=== PATIENT | male | born 1955 | race Caucasian/White ===

== ENCOUNTER 2016-06-02 10:05 | Emergency (ER) | payer OTHER ==
--- NOTE | 2016-06-02 10:18 | CPEKG ---
Heart Rate: 72 RR Interval: 833 P-R Interval: 188 QRSD Interval: 94 QT Interval: 396 QTC Interval: 434 P [place]: 73 QRS [place]: 31 T Wave [place]: 6 EKG Severity - NORMAL ECG - EKG Impression: SINUS RHYTHM Electronically Signed By: Oral Reardon 02-Jun-2016 15:10:50
[2016-06-02 10:19] VITALS: RESP 16
[2016-06-02] MEDS ORDERED: ASPIRIN 81 MG CHEWABLE TAB PO ONE (10:21)
--- NOTE | 2016-06-02 10:29 | UCPHY ---
H & P Patient Type: Established Chief Complaint Nursing Narrative: C/o midsternal chest pain, heart burn x 1 month and nonproductive cough x 1 day. Denies SOB Time Seen by Provider: 06/02/16 10:12 HPI/ROS: Chief complaint: Chest pain HPI: Patient presenting with several days of a brief discomfort in his chest. Patient states that he is having episodes of what he is describing is a dull nerve pain beneath his sternum. That lasts less than a 2nd. He has also been having increasing reflux symptoms. He he is scheduled to have a endoscopy by GI next week. He is presenting this morning having had difficulty sleeping last night because he is getting this chest discomfort and every 5 minutes or so. Again it is brief lasting less than a 2nd. It is moderate in nature. He has had a slight nonproductive cough the last 2 days. No fevers or chills. No nausea or vomiting. Has been having increased symptoms of his reflux. He does have a past medical history of coronary artery disease and had 2 stents placed in 2008. He has not had an WI in the past. Patient states that does not feel like heart pain. He has also has a history of atrial fibrillation in the past for which he had an ablation. Does not feel his heart has been irregular. ROS: 10 point Review of Systems is negative except as noted in the HPI. Physical exam: Gen: Awake, Alert, No Distress HEENT: Nose: no rhinorrhea Eyes: PERRLA, EOMI Mouth: Moist mucosa Neck: Supple, no JVD Chest: nontender, lungs clear to auscultation Heart: S1, S2 normal, no murmur Abd: Soft, non-tender, no guarding Back: no CVA tenderness, no midline tenderness Ext: no edema, non-tender Skin: no rash Neuro: CN II-XII intact, Sensation grossly intact, Strength 5/5 in bilateral upper and lower extremities - Personal History Current Tetanus Diphtheria and Acellular Pertussis (TDAP): Yes Tetanus Vaccine Date: 2016 - Medical/Surgical History Hx Asthma: Yes Hx Chronic Respiratory Disease: No Hx Diabetes: No Hx Cardiac Disease: Yes Hx Renal Disease: No Hx Cirrhosis: No Hx Alcoholism: No Hx HIV/AIDS: No Hx Splenectomy or Spleen Trauma: No Other PMH: Coronary artery disease status post 2 stents. hemorrhoidectomy, Hernia 10/03, glaucoma, R rotator cuff repair, Bilat knee scopes, catheter ablation, stents, l5-s1 laminectomy, rotator cuff rebuild, glaucoma, peripheral neuropathy, AFIB, internal bleeding, acid reflux, HTN - Family History Significant Family History: No pertinent family hx - Social History Smoking Status: Never smoked Constitutional: Initial Vital Signs Temperature (C) 37.2 C 06/02/16 10:16 Heart Rate 74 06/02/16 10:16 Respiratory Rate 16 06/02/16 10:16 Blood Pressure 168/88 H 06/02/16 10:16 O2 Sat (%) 95 06/02/16 10:16 O2 Delivery Mode Room Air Allergies/Adverse Reactions: No Allergies [NKDA] Allergy (Verified 06/02/16 10:19) Home Medications: Medication Instructions Recorded Aspirin 06/02/16 Diltiazem 06/02/16 Fenofibric Acid 06/02/16 Fish Oil 06/02/16 Lipitor 06/02/16 Metoprolol Tartrate 06/02/16 Pantoprazole Sodium 06/02/16 Plavix 06/02/16 Medical Decision Making - Diagnostics EKG Interpretation: EC sinus rhythm with a rate of 72. Normal axis. Normal intervals. No ST or T-wave changes. Impression: Normal ECG ED Course/Re-evaluation: 60-year-old male presenting with atypical chest pain which lasts less than a 2nd. Symptoms do not sound cardiac in nature however he does have a history of cardiac disease. ECG is normal. Will check electrolytes, CBC and troponin. If these are negative I anticipate he will be discharged home with plan to follow up with his GI doctor for his endoscopy early next week. Patient's troponin is normal. He CBC and chemistry are normal. Symptoms are not consistent with acute coronary syndrome at this time. Normal ECG. Plan will be to discharge with follow-up for his endoscopy scheduled next week. - Data Points Laboratory Results: Laboratory Results 06/02/16 10:25 06/02/16 10:25 06/02/16 10:25 WBC 7.12 10^3/uL (3.80-9.50) RBC 5.13 10^6/uL (4.40-6.38) Hgb 15.4 g/dL (13.7-17.5) Hct 44.1 % (40.0-51.0) MCV 86.0 fL (81.5-99.8) MCH 30.0 pg (27.9-34.1) MCHC 34.9 g/dL (32.4-36.7) RDW 11.9 % (11.5-15.2) Plt Count 272 10^3/uL (150-400) MPV 9.8 fL (8.7-11.7) Neut % (Auto) 70.6 % (39.3-74.2) Lymph % (Auto) 21.1 % (15.0-45.0) Petroleum % (Auto) 6.3 % (4.5-13.0) Eos % (Auto) 0.7 % (0.6-7.6) Baso % (Auto) 1.0 % (0.3-1.7) Nucleat RBC Rel Count 0.0 % (0.0-0.2) Absolute Neuts (auto) 5.03 10^3/uL (1.70-6.50) Absolute Lymphs (auto) 1.50 10^3/uL (1.00-3.00) Absolute Monos (auto) 0.45 10^3/uL (0.30-0.80) Absolute Eos (auto) 0.05 10^3/uL (0.03-0.40) Absolute Basos (auto) 0.07 10^3/uL (0.02-0.10) Absolute Nucleated RBC 0.00 10^3/uL (0-0.01) Immature Gran % 0.3 % (0.0-1.1) Immature Gran # 0.02 10^3/uL (0.00-0.10) Sodium 142 mEq/L (134-144) Potassium 4.2 mEq/L (3.5-5.2) Chloride 104 mEq/L (97-110) Carbon Dioxide 26 mEq/l (22-31) Anion Gap 12 mEq/L (8-16) BUN 19 mg/dL (7-23) Creatinine 1.2 mg/dL (0.7-1.3) Estimated GFR > 60 Glucose 105 H mg/dL (70-100) Calcium 9.9 mg/dL (8.5-10.4) Troponin I < 0.012 ng/mL (0-0.034) Medications Given: Discontinued Medications Aspirin (Aspirin) 324 mg PO EDNOW ONE Stop: 06/02/16 10:22 Last Admin: 06/02/16 10:27 Dose: Not Given Departure - Departure Disposition: Home, Routine, Self-Care Clinical Impression: Atypical chest pain Condition: Good Instructions: Chest Pain (ED) Additional Instructions: Follow up with her forward air controller/air officer for your endoscopy as scheduled next week. Return to the emergency depart for increasing persisting chest pain, shortness of breath, fevers, chills, lightheadedness, fainting, or any other concerns. Referrals: Golden Vilchis MD [Primary Care Provider] - As per Instructions - PQRS PQRS Measurement: NA
[2016-06-02 10:34] LABS: % IMMATURE GRANULYOCYTES 0.3 % (0.0-1.1); ABSOLUTE IMMATURE GRANULOCYTES 0.02 10^3/uL (0.00-0.10); ADD DIFF? NO; ADD MORPH? NO; ADD SCAN? NO; ATYPICAL LYMPHOCYTE FLAG 0 (0-99); FRAGMENT RBC FLAG 0 (0-99); HEMATOCRIT 44.1 % (40.0-51.0); HEMOGLOBIN 15.4 g/dL (13.7-17.5); LEFT SHIFT FLG 0 (0-99); LIPEMIA HEMOLYSIS FLAG 90 (0-99); MEAN CELL HEMOGLOBIN CONCENTR. 34.9 g/dL (32.4-36.7); MEAN PLATELET VOLUME 9.8 fL (8.7-11.7); PLATELET CLUMPS FLAG 0 (0-99); PLATELET COUNT 272 10^3/uL (150-400); RED BLOOD CELL COUNT 5.13 10^6/uL (4.40-6.38); RED CELL DISTRIBUTION WIDTH 11.9 % (11.5-15.2)
[2016-06-02 10:46] LABS: ANION GAP 12 mEq/L (8-16); CALCIUM 9.9 mg/dL (8.5-10.4); CARBON DIOXIDE 26 mEq/l (22-31); CHLORIDE 104 mEq/L (97-110); CREATININE 1.2 mg/dL (0.7-1.3); GLOMERULAR FILTRATION RATE > 60; GLUCOSE 105 mg/dL (70-100); POTASSIUM 4.2 mEq/L (3.5-5.2); SODIUM 142 mEq/L (134-144)
[2016-06-02 11:01] LABS: TROPONIN I < 0.012 ng/mL (0-0.034)
[2016-06-02 11:15] VITALS: BP 124/87; PULSE 67; TEMP 98.6; O2SAT 93
== END 2016-06-02 11:21 | disposition home or self-care (01) ==
LOC: CED 10:05
DX: R07.89 Other chest pain (principal); I25.10 Atherosclerotic heart disease of native coronary artery without angina pectoris; Z95.5 Presence of coronary angioplasty implant and graft
CPT/HCPCS: 80048-PO; 84484-PO; 85025-PO; G0463-PO

== ENCOUNTER 2017-01-26 08:12 | Day surgery (SDC) | payer OTHER ==
[2017-01-26] MEDS ORDERED: LIDOCAINE 1% 300 MG/30 ML SDV SC ONE (08:21)
--- NOTE | 2017-01-26 09:01 | PDPROPOC ---
Sedation Plan of Care Sedation Plan of Care: vital signs stable, mental status noted, patient educated of risks, benefits, alternatives, patient can tolerate sedation ASA Classification: ASA 1 Planned drugs: other (local) Mallampati Score: Class 1 Mallampati Reference Image: Patient passed 3-3-2 rule?: Yes
--- NOTE | 2017-01-26 09:01 | PDHPUP ---
History & Physical Update H&P update statement: This history and physical update is based on an assessment of the patient which was completed after admission or registration (within 24 hours), but prior to the surgery/procedure.
--- NOTE | 2017-01-26 13:55 | CPIP ---
[f rep st] INVASIVE CARDIAC PROCEDURE DATE OF PROCEDURE: 01/26/2017 INDICATION: The patient is 61 years old. He has a history of paroxysmal atrial fibrillation with pr evious ablation. Recently, he has had recurrent palpitations. PROCEDURE: Implantation of Medtronic LINQ. TECHNIQUE: Following informed consent and in the fasting state, the patient was brought to the [facility]. The patient was prepped and draped in usual sterile fashion. The left 4th intercostal space was radha ntified. 1% lidocaine was infiltrated. A 1 cm incision was then made. The Medtronic LINQ was then injected underneath the skin. The skin was closed with 2 kashif. COMPLICATIONS: None. DISPOSITION: The patient will be recovered here in the [facility] and discharged home. /[id number]/MODL
== END 2017-01-26 09:42 | disposition home or self-care (01) ==
LOC: FCATH 08:12
PROVIDERS: ATTEND Internal Medicine Cardiovascular Disease
PROC: 0JH60PZ Insertion of Cardiac Rhythm Related Device into Chest Subcutaneous Tissue and Fascia, Open Approach (ICD-10-PCS; principal; 2017-01-26)
DX: I25.10 Atherosclerotic heart disease of native coronary artery without angina pectoris (principal); E78.5 Hyperlipidemia, unspecified; I10 Essential (primary) hypertension; I48.91 Unspecified atrial fibrillation
CPT/HCPCS: C1764

== ENCOUNTER 2017-04-10 23:11 | Emergency (ER) | payer OTHER ==
[2017-04-10 23:20] VITALS: BP 180/95; PULSE 68; RESP 18; TEMP 98.4; O2SAT 95
--- NOTE | 2017-04-10 23:28 | EDPHY ---
H & P Stated Complaint: c/o increasing neuropathy pain in bilat feet, more in L foot HPI/ROS: HPI CHIEF COMPLAINT: Worsening neuropathy HISTORY OF PRESENT ILLNESS: Patient very pleasant 61-year-old male, significant past medical history for peripheral neuropathy, additionally he has had multiple surgeries on both feet. He presents emergency room tonight with left foot pain. Patient reports to me that earlier today developed worsening left foot pain. He is unclear if it is from his back, peripheral neuropathy, or some other foot issue. He denies trauma. His main complaint is pain over his left great toe at the nail bed. He distally reports to me that his left foot appears a little bit more red than normal. He did take some leftover gout medication however he took 1 dose tonight this did not help. He has not had a fever. He tells me his pain is mainly in his left great toe. However it is around the nail bed. There is no signs of infection on exam. Past Medical History: Coronary artery disease with stents, hypertension, glaucoma, rotator cuff injury, peripheral neuropathy, glaucoma Past Surgical History: Cardiac stents, foot surgery bilaterally. Social History: Denies daily use of drugs alcohol tobacco. Family History: Noncontributory. ROS REVIEW OF SYSTEMS: A comprehensive 10 point review of systems is otherwise negative aside from elements mentioned in the history of present illness. Exam Constitutional appears well nontoxic, triage nursing summary reviewed, vital signs reviewed, awake/alert. Eyes normal conjunctivae and sclera, EOMI, PERRLA. HENT normal inspection, atraumatic, moist mucus membranes, no epistaxis, neck supple/ no meningismus, no raccoon eyes. Respiratory clear to auscultation bilaterally, normal breath sounds, no respiratory distress, no wheezing. Cardiovascular rate normal, regular rhythm, no murmur, no edema, distal pulses normal. Gastrointestinal soft, non-tender, no rebound, no guarding, normal bowel sounds, no distension, no pulsatile mass. Genitourinary no CVA tenderness. Musculoskeletal left foot: Tender palpation over the left great toe at the nail bed. No pus. There is no significant signs of redness. The toe does not appear swollen. Over the dorsum of the left foot is neurovascular intact good pulse. There is redness present very minimal. There is no crepitus. With range of motion of the left toe great toe he has pain at the nail bed. There is no significant pain or swelling over the left MTP joint. no midline vertebral tenderness, full range of motion, no calf swelling, no tenderness of extremities, no meningismus, good pulses, neurovascularly intact. Skin pink, warm, & dry, no rash, skin atraumatic. Neurologic awake, alert and oriented x 3, AAOx3, moves all 4 extremities equally, motor intact, sensory intact, CN II-XII intact, normal cerebellar, normal vision, normal speech. Psychiatric normal mood/affect. Heme/Lymph/Immune no lymphadenopathy. Differential Diagnosis: Includes but is not limited to in a particular order: Arthralgia, gouty arthritis, early infection, worsening neuropathy Medical Decision Making: Plan for this patient I will give him a dose of Keflex here in the emergency room and Keflex prescription in case this is an early infection. Additionally recommend he continues his gout medication. Additionally I recommend he follows up with his dairy frozen manager. Additionally could return emergency room if he has worsening symptoms questions concerns. There is no trauma involved I do not believe he needs an actual x- ray. He has not any fever. He does not have severe back pain. He additionally also has oxycodone at home. He declined any further pain medicine here. Source: Patient - Personal History Tetanus Vaccine Date: 2016 - Medical/Surgical History Hx Asthma: Yes Hx Chronic Respiratory Disease: No Hx Diabetes: No Hx Cardiac Disease: Yes Hx Renal Disease: No Hx Cirrhosis: No Hx Alcoholism: No Hx HIV/AIDS: No Hx Splenectomy or Spleen Trauma: No Other PMH: Coronary artery disease status post 2 stents. hemorrhoidectomy, Hernia 10/03, glaucoma, R rotator cuff repair, Bilat knee scopes, catheter ablation, stents, l5-s1 laminectomy, glaucoma, peripheral neuropathy, AFIB, internal bleeding, acid reflux, HTN, rest room matron implant, hyperlipidemia, asthma - Social History Smoking Status: Never smoked Constitutional: Initial Vital Signs Temperature (C) 36.9 C 04/10/17 23:14 Heart Rate 68 04/10/17 23:14 Respiratory Rate 18 04/10/17 23:14 Blood Pressure 180/95 H 04/10/17 23:14 O2 Sat (%) 95 04/10/17 23:14 O2 Delivery Mode Room Air Allergies/Adverse Reactions: No Allergies [NKDA] Allergy (Verified 04/10/17 23:21) Home Medications: Medication Instructions Recorded Aspirin 06/02/16 Diltiazem 06/02/16 Fish Oil 06/02/16 Lipitor 06/02/16 Metoprolol Tartrate 06/02/16 Pantoprazole Sodium 06/02/16 Plavix 06/02/16 Cephalexin [Keflex (*)] 500 mg PO Q6H #28 cap 04/10/17 Departure - Departure Disposition: Home, Routine, Self-Care Clinical Impression: Foot pain Qualifiers: Laterality: left Qualified Code(s): M79.672 - Pain in left foot Condition: Good Instructions: Arthralgia (ED) Additional Instructions: 1. Keep your foot elevated. 2. Ice your foot. 3. Take antibiotic as prescribed 4. Return emergency room if there is worsening symptoms questions or concerns. 5. Follow up with your dairy frozen manager. Referrals: Golden Vilchis MD [Primary Care Provider] - As per Instructions Prescriptions: Cephalexin [Keflex (*)] 500 mg PO Q6H #28 cap
== END 2017-04-11 00:07 | disposition home or self-care (01) ==
DX: M79.672 Pain in left foot (principal); I10 Essential (primary) hypertension; J45.909 Unspecified asthma, uncomplicated; Z79.82 Long term (current) use of aspirin

== ENCOUNTER 2017-08-26 08:52 | Inpatient (IN) | payer OTHER ==
--- NOTE | 2017-08-26 09:08 | EDPHY ---
General Time Seen by Provider: 08/26/17 08:58 Narrative: CHIEF COMPLAINT: Back pain HISTORY OF PRESENT ILLNESS: Patient complains of low back pain that is intractable. The pain has been present for several weeks and is previously describes a chronic pain prior to this. It is involving the lower lumbar musculature and radiates into the right leg down to the patella. It was [id number] at 1st. He went to a chiropractor last week which significantly exacerbated the pain. Is refractory to steroid Dosepak to was given outpatient. Associated with some weakness of the legs but no numbness or tingling. No incontinence of bowel or bladder. No saddle anesthesia. He is in too much pain to ambulate, thus he presents by EMS. He has been seen by neurosurgery in the past with previous L5-S1 laminectomy. He also was seen by urgent care this week and has an MRI plan for tomorrow. No other associated complaints or modifying factors. REVIEW OF SYSTEMS: Ten systems reviewed and are negative unless otherwise noted in the HPI PCP: Dr. Golden Vilchis SPECIALISTS: Neurosurgery, Dr. Jonathan Rocha Cardiology, Dr. Marshall GI, Dr. Monsivais Neurology, Dr. Costa Opthalmology, Dr. Ruiz PAST MEDICAL HISTORY: Multiple diagnoses with history significant for spinal stenosis lumbar radiculopathy PAST SURGICAL HISTORY: Laminectomy be L5-S1 2009 SOCIAL HISTORY: Nonsmoker. Lives here independently. FAMILY HISTORY: Noncontributory EXAMINATION General Appearance: Alert, no distress, laying in left lateral position Head: normocephalic, atraumatic Eyes: Pupils equal and round, no conjunctival pallor or injection ENT, Mouth: Mucous membranes moist Neck: Normal inspection, supple, non-tender Respiratory: Lungs are clear to auscultation Cardiovascular: Regular rate and rhythm. No murmur Gastrointestinal: Abdomen is soft and nontender Back: Tenderness of the lumbar spine with no crepitus or deformity. No fluctuance. No cellulitis. Neurological: A&O, nonfocal. antalgic but steady gait. Strength is symmetric in lower extremities 5/5. Patellar reflexes symmetric. Strength of the great toes is symmetric at 5/5 Skin: Warm and dry, no rash. No petechiae or purpura. No cellulitis or abscess Extremities: Nontender, no pedal edema Psychiatric: Mood and affect normal DIFFERENTIAL DIAGNOSES: Including but not limited to lumbar radiculopathy, discopathy, acute cord compression, nerve root compression, disc rupture, disc herniation MDM: 9:10 a.m. Intractable lumbar back pain with right-sided radiculopathy. No saddle anesthesia. No incontinence of bowel or bladder. His strength is symmetric distally. MRI was scheduled to be done tomorrow, but due to his pain he is here. Thus I ordered the MRI of the lumbar spine. I do not feel this is related to epidural hematoma as he has no bony tenderness of the spinous processes. But he does take Plavix, thus this must be taken a consideration. He is neuro intact at this time with severe pain but in no acute distress. Patient did have a cardiac device implanted in January 2017, thus we will need to further investigate compatibility. 9:50 a.m. Notified by RN that the patient's pain is intractable to the Valium administered so far. I have ordered morphine. MRI is pending. 11:40 a.m. Notified by radiologist Dr. Dao. We discussed the MRI findings as documented. 11:50 a.m. Case discussed with Dr. Cabrera. He agrees with our management the patient thus far. He informs me that he would be happy to evaluate the patient if the patient is admitted to the hospital or that he may be seen in the outpatient clinic if discharged home. I have re-evaluated the patient this time and he would like to try oral Percocet and attempt to go home. 12:50 p.m. Patient re-evaluated. He received Percocet 45 min ago. He has did to ambulate has significant pain and is unable to do so. He will require admission for pain control. He remains neuro intact distally. 1:05 p.m. Case discussed with hospitalist Kalani Hansen. Patient will be admitted to Dr. Patel. He is admitted in stable condition, neurovascular intact with no evidence of acute cord compression. SUPERVISION: Patient was independently examined, but I discussed the case with my secondary supervising physician Dr. Davalos - Diagnostics Imaging Results: Imaging Impressions Lumbar Spine MRI 08/26/17 09:56 Impression: 1. New right posterolateral disk herniation (extrusion) at the L3-L4 level. The extruded disk tracks inferiorly along the L4 vertebral body and is compressing the right L4 nerve root in the ventrolateral recess. 2. Severe bilateral neural foraminal stenosis at L3-L4, L4-L5, and L5-S1 due to diffuse broad-based disk bulges and marked facet hypertrophy has not significantly changed since 2014. 3. Increasing diskogenic edema at the L3-L4 level suggests instability at this level. 4. No compression fracture or bone lesion. Findings discussed with emergency department physician pharmacy affairs assistant, Shahram Nelson PA-C on August 26, 2017 at 11:54 a.m. - History Smoking Status: Never smoked - Objective Vital Signs: Initial Vital Signs Temperature (C) 98.2 F 08/26/17 08:53 Heart Rate 68 08/26/17 08:53 Respiratory Rate 14 08/26/17 08:53 Blood Pressure 169/113 H 08/26/17 08:53 O2 Sat (%) 95 08/26/17 08:53 O2 Delivery Mode Nasal Cannula O2 (L/minute) 2 Allergies/Adverse Reactions: No Allergies [NKDA] Allergy (Verified 04/10/17 23:21) Home Medications: Medication Instructions Recorded Albuterol [Proventil Inhaler HFA 1 - 2 puffs IH Q4HRS PRN 08/26/17 (*)] Albuterol [Proventil Neb] 3 ml IH QID PRN 08/26/17 Aspirin EC [Aspirin EC 81 mg (*)] 81 mg PO DAILY 08/26/17 Atorvastatin Calcium [Lipitor 40 80 mg PO HS 08/26/17 mg (*)] Cholecalciferol Vit D3 [Vitamin D3 2,000 units PO HS 08/26/17 2000 units tab (OTC)] Clopidogrel Bisulfate [Plavix (*)] 75 mg PO DAILY 08/26/17 Cyanocobalamin [Vitamin B12 (*)] 1,000 mcg PO HS 08/26/17 DULoxetine [Cymbalta 20 MG (RX)] 40 mg PO DAILY 08/26/17 Diltiazem HCl [Cartia Xt] 120 mg PO DAILY 08/26/17 Eszopiclone [Lunesta] 3 mg PO HS PRN 08/26/17 Hydrocodone/Acetaminophen [Burden 1 tab PO Q6HRS PRN 08/26/17 5/325 (*)] Indomethacin [Indocin 25 mg (*)] 25 mg PO Q6HRS PRN 08/26/17 LORazepam [Ativan (*)] 1 mg PO HS PRN 08/26/17 Latanoprost 0.005% [Xalatan 0.005% 1 drops LEFTEYE HS 08/26/17 (*)] Lisinopril [Zestril 10 mg (*)] 10 mg PO DAILY 08/26/17 Magnesium Oxide [Magnesium] 500 mg PO HS 08/26/17 Metoprolol Tartrate [Lopressor 25 25 mg PO BID 08/26/17 mg (*)] Warren-3 Fatty Acids [Fish Oil 1000 1,000 mg PO HS 08/26/17 mg (*)] Warren-3 Fatty Acids [Fish Oil 1000 2,000 mg PO BID@08/26/17 mg (*)] Pantoprazole Sodium [Protonix 40mg 40 mg PO DAILY 08/26/17 (*)] Ranitidine HCl [Zantac] 300 mg PO HS 08/26/17 Ubidecarenone [Co Q-10 200 mg] 200 mg PO HS 08/26/17 methylPREDNISolone [Medrol Dose 1 each PO AD 08/26/17 Yohannes] Laboratory Results: Laboratory Results 08/26/17 09:24 08/26/17 09:24 WBC 8.36 10^3/uL 10^3/uL (3.80-9.50) RBC 5.62 10^6/uL 10^6/uL (4.40-6.38) Hgb 16.9 g/dL g/dL (13.7-17.5) Hct 49.9 % % (40.0-51.0) MCV 88.8 fL fL (81.5-99.8) MCH 30.1 pg pg (27.9-34.1) MCHC 33.9 g/dL g/dL (32.4-36.7) RDW 12.8 % % (11.5-15.2) Plt Count 248 10^3/uL 10^3/uL (150-400) MPV 9.8 fL fL (8.7-11.7) Neut % (Auto) 61.4 % % (39.3-74.2) Lymph % (Auto) 26.7 % % (15.0-45.0) [place]iteside % (Auto) 9.3 % % (4.5-13.0) Eos % (Auto) 1.1 % % (0.6-7.6) Baso % (Auto) 0.7 % % (0.3-1.7) Nucleat RBC Rel Count 0.0 % % (0.0-0.2) Absolute Neuts (auto) 5.13 10^3/uL 10^3/uL (1.70-6.50) Absolute Lymphs (auto) 2.23 10^3/uL 10^3/uL (1.00-3.00) Absolute Monos (auto) 0.78 10^3/uL 10^3/uL (0.30-0.80) Absolute Eos (auto) 0.09 10^3/uL 10^3/uL (0.03-0.40) Absolute Basos (auto) 0.06 10^3/uL 10^3/uL (0.02-0.10) Absolute Nucleated RBC 0.00 10^3/uL 10^3/uL (0-0.01) Immature Gran % 0.8 % % (0.0-1.1) Immature Gran # 0.07 10^3/uL 10^3/uL (0.00-0.10) Medications Given: Discontinued Medications Dexamethasone (Decadron Injection) 10 mg IVP EDNOW ONE Stop: 08/26/17 11:49 Last Admin: 08/26/17 12:10 Dose: 10 mg Diazepam (Valium) 5 mg IVP EDNOW ONE Stop: 08/26/17 09:23 Last Admin: 08/26/17 09:26 Dose: 5 mg Morphine Sulfate (Morphine) 4 mg IVP EDNOW ONE Stop: 08/26/17 09:56 Last Admin: 08/26/17 10:07 Dose: 4 mg Morphine Sulfate (Morphine) 4 mg IVP EDNOW ONE Stop: 08/26/17 13:04 Last Admin: 08/26/17 13:10 Dose: 4 mg Ondansetron HCl (Zofran) 4 mg IVP EDNOW ONE Stop: 08/26/17 09:56 Last Admin: 08/26/17 10:07 Dose: 4 mg Oxycodone/Acetaminophen (Percocet 5/325) 2 tab PO EDNOW ONE Stop: 08/26/17 11:53 Last Admin: 08/26/17 12:11 Dose: 2 tab Departure - Departure Disposition: [facility] Inpatient Acute Clinical Impression: Intractable low back pain, Lumbar disc herniation Condition: Good
[2017-08-26] MEDS ORDERED: DIAZEPAM 5 MG/ML 1 ML SYR IVP ONE (09:22)
[2017-08-26] MEDS ORDERED: ONDANSETRON 4 MG/2 ML VIAL IVP ONE (09:55)
[2017-08-26 10:03] LABS: PLATELET COUNT 248 10^3/uL (150-400)
[2017-08-26] MEDS ORDERED: GADOBUTROL 10 ML VIAL IVP ONE (10:36)
[2017-08-26] MEDS ORDERED: DEXAMETHASONE 10 MG/ML VIAL IVP ONE (11:48)
[2017-08-26] MEDS ORDERED: OXYCODONE/APAP 5/325 TAB PO ONE (11:52)
[2017-08-26] MEDS ORDERED: LORazepam 1 MG TAB PO PRN (16:16)
[2017-08-26] MEDS ORDERED: ALBUTEROL 3 ML DEYVIAL IH PRN (16:16)
[2017-08-26] MEDS ORDERED: ALBUTEROL 60 PUFFS/8 GM MDI IH PRN (16:16)
[2017-08-26] MEDS ORDERED: HYDROmorphONE/DILAUDID 1 MG/ML INJ IVP PRN (16:20)
[2017-08-26] MEDS ORDERED: PROMETHAZINE HCL 25 MG/ML INJ IVP PRN (16:20)
[2017-08-26] MEDS ORDERED: ONDANSETRON 4 MG/2 ML VIAL IVP PRN (16:20)
[2017-08-26] MEDS ORDERED: *MD ORDERING ONLY-MEDROL DOSE PAK PO SCH (16:30)
--- NOTE | 2017-08-26 17:04 | GHP ---
[f rep st] HISTORY AND PHYSICAL DATE OF ADMISSION: 08/26/2017 CHIEF COMPLAINT: Back pain. HISTORY OF PRESENT ILLNESS: The patient is a 62-year-old male who had a laminectomy in 2009 at L3-L4 and L5-S1 with Dr. Harmon. After that surgery, his back pain went away, but his numbness never resolved. He has explored many options regarding his lower extremity numbness and was considering s urgery but, at that time, did not have any pain, and the risk/benefit ratio did not seem to be in fav or of pursuing surgery. He recently started seeing a chiropractor and, with chiropractic treatments, his numbness got better, but it has caused a new low back pain. Pain has gotten progressive over e last 1-1/2 weeks and, last night, got so excruciating that he came to the emergency room. The pain is worse with walking and standing and is much improved when he sits. It radiates down his right le g to his mid calf from the groin to the knee. He was seen recently in the urgent care at [facility] and prescribed a Medrol Dosepak. He denies any bladder or bowel control. He had an MRI scheduled for tomorrow but did not make it as he ended up in the emergency room. He is having some l ower extremity weakness, mostly in the proximal thigh, but he still is able to ambulate. PAST MEDICAL HISTORY: 1. Obstructive sleep apnea, CPAP intolerant. 2. Palpitations, status post LINQ monitor. 3. Asthma. 4. Atrial fibrillation, status post ablation. 5. BPH with elevated PSA. Being monitored. 6. Coronary artery disease, status post stents 2008. Last dose of Plavix yesterday morning. 7. Glaucoma of the left eye. 8. Neuropathy. PAST SURGICAL HISTORY: Lumbar fusion, bone spurs, rotator cuff. MEDICATIONS: Please see computerized record for full detailed list. ALLERGIES: No known drug allergies. SOCIAL HISTORY: No smoking, 1-2 alcoholic beverages per day. He lives alone. He owns [employer]. REVIEW OF SYSTEMS: Complete review of systems obtained. Review of systems negative for constitution al, HEENT, GI, pulmonary, vascular, , hematology, muscular, endocrine, psych, except for positive a nd negatives as in HPI. FAMILY HISTORY: Reviewed, noncontributory to presenting complaint. PHYSICAL EXAMINATION: GENERAL: Well-developed, well-nourished male, in no acute distress. VITAL SI GNS: Temperature is 36.8, pulse 55, blood pressure 148/88, satting 93% on room air. EYES: Normal c onjunctivae. Pupils equal, round, react to light. ENT: Normal ears and nose. Hearing intact. Nor mal teeth. Oropharynx moist. NECK: Trachea midline. No thyromegaly. CHEST: Normal effort. LUNG S: Clear to auscultation bilaterally. CARDIOVASCULAR: Regular rhythm. No murmur. No lower extremi ty edema. ABDOMEN: Soft, nontender. No hepatosplenomegaly. SKIN: Warm, dry, intact. No rash. M USCULOSKELETAL: No cyanosis or clubbing. Strength 4+/5 to right lower extremities. NEURO: Cranial nerves intact. Some decreased sensation to lower extremities. PSYCH: Alert and oriented x3. Norm al affect. Normal judgment and insight. Normal memory. LABORATORY DATA: White count 8.36, hematocrit 49.9, platelets 248. IMAGING: Lumbar MRI shows L3-L4 disk herniation with compression of the L4 nerve root and severe karla ateral foraminal stenosis at multiple levels. This case was discussed with neurosurgery PA for Dr. Gaurav mejia, and they will see him in consultation as an inpatient. MEDICAL RECORD REVIEW: I reviewed his medical records, including outpatient records in [facility] past medical history which I summarized above. ASSESSMENT/PLAN: 1. Disk herniation with nerve root compression. Pain control with IV narcotics are required at this time. Will prescribe IV Dilaudid. Neurosurgery to see him in consultation. Will hold his Plavix i n case he is going to need surgery in the near future. 2. Coronary artery disease status post stents 2008. Since he is so far out from his stents, okay to hold aspirin and Plavix. He is up to date with Cardiology and sees Dr. Love and Dr. Nicholson. He has been cleared by them for surgery as an outpatient, as he knew surgery was likely imminent for him. Will continue his beta jannette and statin. Will check an EKG in the morning. 3. Obstructive sleep apnea, CPAP intolerant. He may need oxygen at night. 4. Atrial fibrillation status post ablation. Continue diltiazem. 5. Palpitations with LINQ monitor in place. 6. Asthma, stable. Continue albuterol as needed. CODE STATUS: Full. ADMISSION STATUS: 1. Will admit to observation and re-evaluate tomorrow for ongoing need for hospitalization. 2. DVT prophylaxis. Will do SCDs only until surgical plan outlined by General Surgery. /[id number]/MODL
[2017-08-26] MEDS: methylPREDNISolone 4 MG TAB PO SCH ×2 (18:12→21:41)
[2017-08-26] MEDS ORDERED: NON-FORMULARY NEW DRUG (Ranitidine Hcl [Zantac] 300 MG) PO SCH ×2 (21:00)
[2017-08-26] MEDS ORDERED: NON-FORMULARY NEW DRUG (Magnesium Oxide [Magnesium] 500 MG) PO SCH (21:00)
[2017-08-26] MEDS: FAMOTIDINE 20 MG TAB PO SCH (21:21)
[2017-08-26] MEDS: CHOLECALCIFEROL VIT D3 2,000 UNITS TAB/CAP PO SCH (21:21)
[2017-08-26] MEDS: CYANO/VITAMIN B12 1000 MCG TAB PO SCH (21:21)
[2017-08-26] MEDS: ATORVASTATIN CALCIUM 40 MG TAB PO SCH (21:21)
[2017-08-26] MEDS: METOPROLOL TARTRATE 25 MG TAB PO SCH (21:21)
[2017-08-26] MEDS: LATANOPROST 0.005% 2.5 ML OPHT DROPS LEFTEYE SCH (21:40)
[2017-08-26] MEDS: HYDROCODONE/APAP 5/325 TAB PO PRN (21:48)
--- NOTE | 2017-08-26 22:16 | GCON ---
[f rep st] CONSULTATION NEUROSURGERY CONSULTATION DATE OF CONSULTATION: 08/26/2017 Patient was seen and evaluated at 8:45 p.m. on the general care floor at [facility]. HISTORY OF PRESENT ILLNESS: The patient is a 62-year-old man, who has had a long history of lumbar spine problems. He was originally taken care of by Dr. Harmon and had a right L3-4 hemilaminotomy and bilateral hemilaminotomies at L5-S1. His back pain apparently improved at that time and some of his leg pain. However, he has had bilateral [id number] lower extremity numbness, which has never resolved. He has seen multiple surgeons including Dr. Rocha and Dr. Monroy for this and most recently has been following with Dr. Lees at [facility]. He was recommended to have a L3-S1 fusion, but has not had this done as of yet. He has been having increasing right leg L4 radiculopathy over the past several weeks, and it has been becoming more and more painful and difficult for him to walk. He was prescribed a Medrol Dosepak, but this did not work very well for him. He says he has had multiple injections in the lower extremities, but these did not always work very well for him. He presented to the ER and had a recent MRI scan, and this reveals severe degenerative disk disease at L3-4 and L4-5. He has a small extruded fragment in the lateral recess at L3-4, which appears to be compressing the L4 nerve root in the lateral recess. He has bilateral severe foraminal stenosis at L3-4 , L4-5 and L5-S1, although this does not seem to be quite as severe at L5-S1. He denies any bowel or bladder control. He does have fairly significant back pain, but it is his leg that is currently bothering him now. REVIEW OF SYSTEMS: A 10-point review of systems is negative other than described above in the HPI. PAST MEDICAL HISTORY: 1. Obstructive sleep apnea. 2. Heart palpitations. 3. Asthma. 4. Atrial fibrillation. 5. Benign prostatic hypertrophy. 6. Coronary artery disease status post stents in 2008 on Plavix. 7. Glaucoma of the left eye. 8. Peripheral neuropathy. PAST SURGICAL HISTORY: 1. Lumbar laminectomy L3-4 and L5-S1. 2. Rotator cuff repair. ALLERGIES: No known drug allergies. MEDICATIONS: His medications were reviewed in the electronic medical record, and I have no additions at this time. Of note, the patient is on Plavix. SOCIAL HISTORY: Patient denies any tobacco use. He drinks 1-2 alcoholic beverages per day. 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 FAMILY HISTORY: Family history was reviewed, but is noncontributory to this admission. PHYSICAL EXAM: VITAL SIGNS: Currently, he is afebrile with normal stable vital signs. GENERAL: He is awake, alert, and oriented x3. NEUROLOGIC: Cranial nerves 2-12 are grossly normal. He has full 5/5 strength and normal sensation in all muscle groups in the upper limbs. In the lower extremities, he has 5/5 strength of the hip flexors, extensors, knee flexors, extensors, and plantar and dorsiflexion. He has a mildly positive straight leg raise on the right side and negative on the left. Deep tendon reflexes are intact. Sensation is mostly intact, but he does have some subjective weakness below the knees on both sides in a non dermatomal pattern. Imaging review, see HPI. ASSESSMENT AND PLAN: The patient is a pleasant 62-year-old male with a long history of lumbar spine problems. I think the issue most related to his current complaint with the L4 radiculopathy is acute disk herniation. I discussed with him the options for this including recommending an epidural steroid injection at L3-4 on the right side to see if this will relieve most of his pain. I think ultimately he probably would require a transforaminal lumbar interbody fusion at L3-4 and L4-5 and possibly L5-S1, especially if he hopes to improve his back pain and possibly the lower extremity numbness. It is pretty clear that he has had an EMG in the past by Dr. Costa and that the some of his numbness is due to peripheral neuropathy, but some of it also may be due to the lumbar spine. He is going to consider these options, and we will talk to the radiologist tomorrow with regard to how long they would like him to be off Plavix prior to considering a steroid injection. I think this would be the best way to proceed in the short term. However, over the group home, I do expect he ultimately will need surgery and will need a fusion. We will follow along while he is here in the hospital and try to help arrange the steroid injection. I will give him some Toradol in the meantime to see if this will help his pain a little bit better. The patient is happy with this plan. If we could get him feeling a bit better, he could even come back as an outpatient for the steroid injection. We will continue to work on this. Thanks for the kind consult. /[id number]/MODL MTDD
[2017-08-27] MEDS: HYDROCODONE/APAP 5/325 TAB PO PRN ×2 (06:21→21:58)
[2017-08-27] MEDS ORDERED: KETOROLAC 15 MG/1 ML SDV IVP ONE (08:00)
--- NOTE | 2017-08-27 08:04 | NEUSURGPN ---
Assessment/Plan: Assessment: 62 yr old male with L3-4 lateral recess disc herniation with L4 nerve compression Plan: -Will plan for right L3-4 TFESI tomorrow, patient took last dose of ASA and Plavix on Sunday. I spoke with IR, patient needs to be off for 3 days -Toradol 15mg IVP x1 -PT/OT-patient states he cannot ambulate far due to pain -Patient may need surgery if symptoms do not improve with injection. Possible L3 -5 TLIF (maybe L5-S1 as well) -Patient discussed with Dr Cabrera Please call neurosurgery with questions/concerns Subjective: Laying in bed, painful to ambulate Objective: AxOx3 PERRLA 5/5 BLE, BUE Sensation intact to light touch BLE, patient reports chronic numbness Neuro Check Frequency: per routine Urinary Catheter in Place: No - Physician Discussed Patient with : Deborah Neurosurgery Physical Exam - Vitals, I&O, Labs I and O 08/26/17 08/27/17 08/28/17 05:59 05:59 05:59 Intake Total 1820 Output Total 1650 Balance 170 Weight 102.058 kg Intake: Oral (ml) 820 IV Infused (ml) 1000 Output: Urine (ml) 1650 Toilet 900 Other: Intake Quantity Yes Sufficient Number of Voids Toilet 1 Vital Signs Temp Pulse Resp BP Pulse Ox 36.6 C 67 16 138/84 H 96 08/27/17 07:46 08/27/17 07:46 08/27/17 07:46 08/27/17 07:46 08/27/17 07:46 ICD10 Worksheet Patient Problems: Problems Problem Status Onset Intractable low back pain Acute Lumbar disc herniation Acute Lower GI bleed Acute
[2017-08-27] MEDS: methylPREDNISolone 4 MG TAB PO SCH ×5 (08:28→18:30)
[2017-08-27] MEDS: METOPROLOL TARTRATE 25 MG TAB PO SCH ×2 (08:28→20:01)
[2017-08-27] MEDS: LISINOPRIL 10 MG TAB PO SCH (08:28)
[2017-08-27] MEDS: MAGNESIUM OXIDE 400 MG TAB PO SCH (08:28)
[2017-08-27] MEDS: DILTIAZEM CD 120 MG CAP PO SCH (08:29)
[2017-08-27] MEDS: DULoxetine 20 MG CAP PO SCH (08:29)
[2017-08-27] MEDS: PANTOPRAZOLE SODIUM 40 MG TAB PO SCH (08:35)
--- NOTE | 2017-08-27 08:47 | CPEKG ---
Heart Rate: 57 RR Interval: 1053 QRSD Interval: 88 QT Interval: 440 QTC Interval: 429 QRS Ilion: 60 T Wave Ilion: 35 EKG Severity - ABNORMAL ECG - EKG Impression: sinus rhythm. Query atrial pacing?otherwise normal ecg. Electronically Signed By: Aj Nicholson 27-Aug-2017 12:41:16
[2017-08-27] MEDS: oxyCODONE IR 5 MG TAB PO PRN ×3 (10:10→18:39)
--- NOTE | 2017-08-27 14:11 | HOSPPROG ---
Hospitalist Progress Note Assessment/Plan: * Disk herniation with right L4 radiculopathy due to nerve root compression -CATALINA in am (okay when off Plavix x 3 days) -complete medrol dose pack * CAD/stent -holding ASA/Plavix for procedure -previously cleared for surgery by cardiology * ELIZABETH -O2 at night * Afib s/p ablation -continue diltiazem -LINQ monitor in place * Stable asthma * Peripheral neuropathy Subjective: Pain the same when he walks, minimal pain when sitting in bed Objective: Vital Signs Temp Pulse Resp BP Pulse Ox 36.6 C 67 16 138/84 H 96 08/27/17 07:46 08/27/17 07:46 08/27/17 07:46 08/27/17 07:46 08/27/17 07:46 08/26/17 08/27/17 08/28/17 05:59 05:59 05:59 Intake Total 1820 Output Total 1650 500 Balance 170 -500 - Physical Exam Constitutional: no apparent distress, appears nourished, not in pain Cardiovascular: regular rate and rhythym, no murmur, rub, or gallop Respiratory: no respiratory distress, no rales or rhonchi, clear to auscultation Gastrointestinal: normoactive bowel sounds, soft, non-tender abdomen, no palpable masses Skin: no rashes or abrasions, no fluctuance, no induration Neurologic: AAOx3, sensation intact bilaterally Psychiatric: interacting appropriately, not anxious, not encephalopathic, thought process linear ICD10 Worksheet Patient Problems: Problems Problem Status Onset Intractable low back pain Acute Lumbar disc herniation Acute Lower GI bleed Acute
--- NOTE | 2017-08-27 15:57 | ASMTCMCOM ---
CM Note CM Note Notes: Pt in for intractable back pain and disk herniation.i Pt scheduled to have steroid injection tomorrow. PT/OT evals pending. Pt resides in [facility]. CM to follow for d/c needs. Date Signed: 08/27/2017 03:57 PM Electronically Signed By:REY Coyne
[2017-08-27] MEDS: ATORVASTATIN CALCIUM 40 MG TAB PO SCH (20:00)
[2017-08-27] MEDS: FAMOTIDINE 20 MG TAB PO SCH (20:01)
[2017-08-27] MEDS: CYANO/VITAMIN B12 1000 MCG TAB PO SCH (20:01)
[2017-08-27] MEDS: CHOLECALCIFEROL VIT D3 2,000 UNITS TAB/CAP PO SCH (20:01)
[2017-08-27] MEDS: LATANOPROST 0.005% 2.5 ML OPHT DROPS LEFTEYE SCH (20:02)
[2017-08-27] MEDS ORDERED: methylPREDNISolone 4 MG TAB PO SCH (21:00)
[2017-08-28] MEDS: oxyCODONE IR 5 MG TAB PO PRN ×2 (01:42→14:09)
[2017-08-28] MEDS ORDERED: ZOLPIDEM TARTRATE 5 MG TAB PO ONE (02:50)
[2017-08-28] MEDS: methylPREDNISolone 4 MG TAB PO SCH ×4 (06:38→20:20)
[2017-08-28] MEDS: HYDROCODONE/APAP 5/325 TAB PO PRN ×3 (07:11→22:26)
[2017-08-28] MEDS: HYDROmorphone HCL/NS 0.5 MG/ML SYR IVP PRN ×2 (08:15→11:00)
--- NOTE | 2017-08-28 08:27 | NEUSURGPN ---
Assessment/Plan: Assessment: 62 yr old male with L3-4 lateral recess disc herniation with L4 nerve compression Plan: -Will plan for right L3-4 TFESI today, patient is npo -Toradol 15mg IVP x1 yesterday did not reduce his pain -PT/OT-patient states he cannot ambulate far due to pain -Patient may need surgery if symptoms do not improve with injection. Possible L3 -5 TLIF (maybe L5-S1 as well). Keep off Plavix and ASA until plan is decided on -Patient discussed with Dr Cabrera Please call neurosurgery with questions/concerns Subjective: No new events, awaiting injection today Objective: AxOx3 PERRLA 5/5 BLE, BUE Sensation intact to light touch BLE, patient reports chronic numbness Neuro Check Frequency: per routine Urinary Catheter in Place: No - Physician Discussed Patient with : Deborah Neurosurgery Physical Exam - Vitals, I&O, Labs I and O 08/27/17 08/28/17 08/29/17 05:59 05:59 05:59 Intake Total 1820 990 Output Total 1650 1550 Balance 170 -560 Weight 102.058 kg Intake: Oral (ml) 820 300 IV Intake (ml) 690 IV Infused (ml) 1000 Output: Urine (ml) 1650 1550 Toilet 900 1550 Other: Intake Quantity Yes Sufficient Number of Voids Toilet 1 1 Number of Stools Toilet 1 Vital Signs Temp Pulse Resp BP Pulse Ox 36.8 C 59 L 16 119/75 95 08/27/17 23:31 08/27/17 23:31 08/27/17 23:31 08/27/17 23:31 08/27/17 23:31 ICD10 Worksheet Patient Problems: Problems Problem Status Onset Intractable low back pain Acute Lumbar disc herniation Acute Lower GI bleed Acute
[2017-08-28] MEDS: DILTIAZEM CD 120 MG CAP PO SCH (11:05)
[2017-08-28] MEDS: METOPROLOL TARTRATE 25 MG TAB PO SCH ×2 (11:05→20:20)
[2017-08-28] MEDS: MAGNESIUM OXIDE 400 MG TAB PO SCH (11:06)
[2017-08-28] MEDS: DULoxetine 20 MG CAP PO SCH (11:06)
[2017-08-28] MEDS: LISINOPRIL 10 MG TAB PO SCH (11:07)
[2017-08-28] MEDS: PANTOPRAZOLE SODIUM 40 MG TAB PO SCH (11:07)
--- NOTE | 2017-08-28 12:54 | HOSPPROG ---
Hospitalist Progress Note Assessment/Plan: Edin is a 62 y/o male who had a laminectomy in 2009. His back pain went away but cont to have numbness.He saw a chiropractor who helped with the numbness but then the pain returned. He had an MRI performed which showed L3- L4 disk herniation w compression of the L4 nerve root and severe foraminal stenosis at multiple levels. Today is my first encounter w the patient; reviewed his care with Dr Tristan yesterday while she was caring for him. Reviewed neurosurgery notes. * Disk herniation with right L4 radiculopathy due to nerve root compression -CATALINA today (okay when off Plavix x 3 days) -complete medrol dose pack -will order fluids while NPO -has ongoing numbness and pain * CAD/stent -holding ASA/Plavix for procedure -previously cleared for surgery by cardiology -stents were placed multiple years ago * ELIZABETH -O2 at night * Afib s/p ablation -continue diltiazem -LINQ monitor in place * Stable asthma -no s/sx of any exacerbation * Peripheral neuropathy (chronic) *plan: to get steroid injection today Subjective: Winston said pain is ongoing, hoping that the steroid injection helps. Objective: Vital Signs Temp Pulse Resp BP Pulse Ox 36.8 C 55 L 12 141/81 H 95 08/28/17 11:03 08/28/17 11:05 08/28/17 11:03 08/28/17 11:07 08/28/17 11:03 08/27/17 08/28/17 08/29/17 05:59 05:59 05:59 Intake Total 1820 990 Output Total 1650 1550 400 Balance 170 -560 -400 - Physical Exam Constitutional: no apparent distress, appears nourished Eyes: PERRL Ears, Nose, Mouth, Throat: hearing normal Cardiovascular: regular rate and rhythym Respiratory: no respiratory distress Skin: warm Neurologic: AAOx3 Psychiatric: interacting appropriately ICD10 Worksheet Patient Problems: Problems Problem Status Onset Intractable low back pain Acute Lumbar disc herniation Acute Lower GI bleed Acute
[2017-08-28] MEDS ORDERED: FLUMAZENIL 0.5 MG/5 ML MDV IVP PRN (13:12)
[2017-08-28] MEDS ORDERED: MEPERIDINE 25 MG/ML SYR IVP PRN (13:12)
[2017-08-28] MEDS ORDERED: MIDAZOLAM 2 MG/2 ML VIAL IVP PRN (13:12)
[2017-08-28] MEDS ORDERED: GLUCAGON HCL 1 MG VIAL IVP PRN (13:12)
[2017-08-28] MEDS ORDERED: NALOXONE HCL 0.4 MG/ML INJ IVP PRN (13:12)
[2017-08-28] MEDS ORDERED: fentaNYL 100 MCG/2 ML INJ IVP PRN (13:12)
[2017-08-28] MEDS ORDERED: NS 1,000 ML IV SCH (13:15)
[2017-08-28] MEDS ORDERED: fentaNYL 100 MCG/2 ML INJ ONE (15:25)
[2017-08-28] MEDS ORDERED: MIDAZOLAM 2 MG/2 ML VIAL ONE (15:25)
[2017-08-28] MEDS ORDERED: TRIAMCINOLONE ACETONIDE 200 MG/5 ML MDV IM ONE (15:27)
--- NOTE | 2017-08-28 16:32 | PDRADPN ---
Radiology Procedure Note Date of Procedure: 08/28/17 Radiologist: Olivia Turner Anesthesia: IV Sedation Pre-op Diagnosis: DDD Post-op Diagnosis: same Indication: back and leg pain Procedure: bilateral L4-5 TFESI and SNRB Finding(s): SEE REPORT Inf/Abcess present in the surg proc area at time of surgery?: No Complications: NONE
[2017-08-28] MEDS: CYANO/VITAMIN B12 1000 MCG TAB PO SCH (20:19)
[2017-08-28] MEDS: LATANOPROST 0.005% 2.5 ML OPHT DROPS LEFTEYE SCH (20:19)
[2017-08-28] MEDS: FAMOTIDINE 20 MG TAB PO SCH (20:20)
[2017-08-28] MEDS: CHOLECALCIFEROL VIT D3 2,000 UNITS TAB/CAP PO SCH (20:20)
[2017-08-28] MEDS: ATORVASTATIN CALCIUM 40 MG TAB PO SCH (20:35)
[2017-08-29] MEDS: HYDROCODONE/APAP 5/325 TAB PO PRN (05:31)
[2017-08-29] MEDS: MAGNESIUM OXIDE 400 MG TAB PO SCH (08:11)
[2017-08-29] MEDS: DULoxetine 20 MG CAP PO SCH (08:11)
[2017-08-29] MEDS: methylPREDNISolone 4 MG TAB PO SCH ×3 (08:11→22:05)
[2017-08-29] MEDS: oxyCODONE IR 5 MG TAB PO PRN (08:12)
[2017-08-29] MEDS: LISINOPRIL 10 MG TAB PO SCH (08:13)
[2017-08-29] MEDS: PANTOPRAZOLE SODIUM 40 MG TAB PO SCH (08:13)
[2017-08-29] MEDS: METOPROLOL TARTRATE 25 MG TAB PO SCH ×2 (08:14→22:03)
[2017-08-29] MEDS: DILTIAZEM CD 120 MG CAP PO SCH (08:14)
[2017-08-29] MEDS: METHOCARBAMOL 750 MG TAB PO PRN ×2 (08:24→13:09)
[2017-08-29] MEDS ORDERED: LACTULOSE 20 GM/30 ML UDCUP PO PRN (08:41)
[2017-08-29] MEDS ORDERED: MAGNESIUM HYDROXIDE 30 ML UDCUP PO PRN (08:41)
[2017-08-29] MEDS ORDERED: BISACODYL 10 MG SUPP PR PRN (08:41)
--- NOTE | 2017-08-29 08:46 | NEUSURGPN ---
Assessment/Plan: Assessment: 62 yr old male with L3-4 lateral recess disc herniation with L4 nerve compression Plan: -Bilateral L3-4 TFESI and SRB performed yesterday, patient has not noticed improvement in his symptoms yet today, pain increases when out of bed -Dr Cabrera will see and talk with patient today about surgerical options. We would like him to be off his Plavix x7days prior to surgery (09/01). Surgery likely would be Sunday 09/03. Surgery would be L3-4, L4-5 TLIF (possible L5-S1 TLIF as well). -Continue to hold Plavix and ASA -PT/OT -Patient discussed with Dr Cabrera Please call neurosurgery with questions/concerns Subjective: Leg pain still present, some relief with laying in bed Objective: AxOx3 PERRLA 08/25 BLE, BUE Sensation intact to light touch BLE, patient reports chronic numbness Neuro Check Frequency: per routine Urinary Catheter in Place: No - Physician Discussed Patient with Dr.: Cabrera Patient Seen by Dr.: Cabrera Neurosurgery Physical Exam - Vitals, I&O, Labs I and O 08/28/17 08/29/17 08/30/17 05:59 05:59 05:59 Intake Total 990 120 Output Total 1550 825 Balance -560 -705 Intake: Oral (ml) 300 120 IV Intake (ml) 690 Output: Urine (ml) 1550 825 Toilet 1550 Urinal 825 Other: Intake Quantity Yes Sufficient Number of Voids Toilet 1 1 Urinal 1 Number of Stools Toilet 1 Vital Signs Temp Pulse Resp BP Pulse Ox 36.8 C 59 L 18 168/92 H 96 08/29/17 07:54 08/29/17 07:54 08/29/17 07:54 08/29/17 07:54 08/29/17 07:54 ICD10 Worksheet Patient Problems: Problems Problem Status Onset Intractable low back pain Acute Lumbar disc herniation Acute Lower GI bleed Acute
[2017-08-29] MEDS: POLYETHYLENE GLYCOL 3350 17 GM PKT PO PRN (08:48)
[2017-08-29] MEDS: SENNOSIDES/DOCUSATE SODIUM TAB PO SCH ×2 (08:48→22:05)
[2017-08-29] MEDS: ACETAMINOPHEN 325 MG TAB PO PRN (13:12)
--- NOTE | 2017-08-29 13:39 | HOSPPROG ---
Hospitalist Progress Note Assessment/Plan: Edin is a 62 y/o male who had a laminectomy in 2009. His back pain went away but cont to have numbness.He saw a chiropractor who helped with the numbness but then the pain returned. He had an MRI performed which showed L3- L4 disk herniation w compression of the L4 nerve root and severe foraminal stenosis at multiple levels. * Disk herniation with right L4 radiculopathy due to nerve root compression -s/p bilateral CATALINA yesterday without significant improvement of symptoms -to have surgery Sunday most likely; will need to stay off Plavix and aspirin * CAD/stent -holding ASA/Plavix for procedure -previously cleared for surgery by cardiology -stents were placed multiple years ago * ELIZABETH -O2 at night * Afib s/p ablation -continue diltiazem -LINQ monitor in place * Stable asthma -no s/sx of any exacerbation * Peripheral neuropathy (chronic) *dvt prophylaxis: LMWH initiated. This will need to be stopped after Sunday's dose for surgery on Sunday. -patient has not been very mobile *plan: continue supportive care till surgery, patient has some swelling in right calf area; will get an ultrasound to further evaluate. Subjective: Winston has some c/o numbness down his right leg, also notices his right ramos is slightly swollen. Objective: Vital Signs Temp Pulse Resp BP Pulse Ox 36.8 C 59 L 18 168/92 H 96 08/29/17 07:54 08/29/17 07:54 08/29/17 07:54 08/29/17 07:54 08/29/17 07:54 08/28/17 08/29/17 08/30/17 05:59 05:59 05:59 Intake Total 990 120 Output Total 1550 825 Balance -560 -705 - Physical Exam Constitutional: no apparent distress, appears nourished Eyes: PERRL Ears, Nose, Mouth, Throat: hearing normal Cardiovascular: regular rate and rhythym Respiratory: no respiratory distress Musculoskeletal: generalized weakness Neurologic: AAOx3 Psychiatric: interacting appropriately ICD10 Worksheet Patient Problems: Problems Problem Status Onset Intractable low back pain Acute Lumbar disc herniation Acute Lower GI bleed Acute
[2017-08-29] MEDS: ATORVASTATIN CALCIUM 40 MG TAB PO SCH (22:03)
[2017-08-29] MEDS: CYANO/VITAMIN B12 1000 MCG TAB PO SCH (22:05)
[2017-08-29] MEDS: CHOLECALCIFEROL VIT D3 2,000 UNITS TAB/CAP PO SCH (22:05)
[2017-08-29] MEDS: FAMOTIDINE 20 MG TAB PO SCH (22:07)
[2017-08-29] MEDS: LATANOPROST 0.005% 2.5 ML OPHT DROPS LEFTEYE SCH (22:07)
[2017-08-30] MEDS: methylPREDNISolone 4 MG TAB PO SCH ×2 (07:49→22:19)
[2017-08-30] MEDS: DILTIAZEM CD 120 MG CAP PO SCH (08:10)
[2017-08-30] MEDS: DULoxetine 20 MG CAP PO SCH (08:11)
[2017-08-30] MEDS: LISINOPRIL 10 MG TAB PO SCH (08:11)
[2017-08-30] MEDS: METOPROLOL TARTRATE 25 MG TAB PO SCH ×2 (08:12→22:17)
[2017-08-30] MEDS: SENNOSIDES/DOCUSATE SODIUM TAB PO SCH ×2 (08:13→22:19)
[2017-08-30] MEDS: MAGNESIUM OXIDE 400 MG TAB PO SCH (08:13)
[2017-08-30] MEDS: PANTOPRAZOLE SODIUM 40 MG TAB PO SCH (08:14)
[2017-08-30] MEDS: ENOXAPARIN 40 MG/0.4 ML SYR SC SCH (08:14)
[2017-08-30] MEDS: HYDROCODONE/APAP 5/325 TAB PO PRN (08:20)
--- NOTE | 2017-08-30 08:34 | NEUSURGPN ---
Assessment/Plan: Assessment: 62 yr old male with L3-4 lateral recess disc herniation with L4 nerve compression Plan: -Bilateral L3-4 TFESI and SRB performed yesterday, patient has not noticed improvement in his symptoms, pain increases when out of bed -Dr Cabrera has spoken with patient today about surgical options. We would like him to be off his Plavix x7days prior to surgery (09/01). Surgery likely would be Sunday 09/03. Surgery would be L3-S1 TLIF with laminectomy/foraminotomies -NPO after midnight on Sunday -Discussed risks of surgery with pt today and all questions answered. Consents left at bedside to be signed -Continue to hold Plavix and ASA -PT/OT -Patient discussed with Dr Cabrera Please call neurosurgery with questions/concerns Subjective: Pt resting in bed, understands plan for surgery on sunday and wishes to proceed Objective: AAOx3 NAD VSS MAEx4 Motor 08/25 BLE +LT Urinary Catheter in Place: No - Physician Discussed Patient with Dr.: Cabrera Neurosurgery Physical Exam - Vitals, I&O, Labs I and O 08/29/17 08/30/17 08/31/17 05:59 05:59 05:59 Intake Total 120 1000 Output Total 825 500 Balance -705 1000 -500 Intake: Oral (ml) 120 1000 Output: Urine (ml) 825 500 Urinal 825 500 Other: Intake Quantity Yes Yes Sufficient Number of Voids Toilet 1 Urinal 1 65 1 Vital Signs Temp Pulse Resp BP Pulse Ox 36.8 C 65 14 169/93 H 94 08/30/17 07:43 08/30/17 08:12 08/30/17 07:43 08/30/17 08:12 08/30/17 07:43 ICD10 Worksheet Patient Problems: Problems Problem Status Onset Intractable low back pain Acute Lumbar disc herniation Acute Lower GI bleed Acute
--- NOTE | 2017-08-30 13:59 | ASMTCMCOM ---
CM Note CM Note Notes: Surgical options discussed with pt since the steroid injection has not provided relief. Pt to be off Plavix before surgery so now surgery is scheduled Sunday09/03/17. Pt likely will stay in hospital until surgery. OT will hold eval until after surgery. PT rec home/outpatient. CM to follow pt progress after surgery. Date Signed: 08/30/2017 01:59 PM Electronically Signed By:REY Coyne
--- NOTE | 2017-08-30 15:22 | HOSPPROG ---
Hospitalist Progress Note Assessment/Plan: Edin is a 62 y/o male who had a laminectomy in 2009. His back pain went away but cont to have numbness. He saw a chiropractor who helped with the numbness but then the pain returned. He had an MRI performed which showed L3- L4 disk herniation w compression of the L4 nerve root and severe foraminal stenosis at multiple levels. First encounter, chart reviewed. * Disk herniation with right L4 radiculopathy due to nerve root compression -s/p bilateral CATALINA yesterday without significant improvement of symptoms -to have surgery Sunday most likely; will need to stay off Plavix and aspirin * CAD/stent -holding ASA/Plavix for procedure -previously cleared for surgery by cardiology -stents were placed multiple years ago * ELIZABETH -O2 at night * Afib s/p ablation -continue diltiazem -LINQ monitor in place * Stable asthma -no s/sx of any exacerbation * Peripheral neuropathy (chronic) *Leg swelling -no clot per US *dvt prophylaxis: LMWH initiated. This will need to be stopped after Sunday's dose for surgery on Sunday. -patient has not been very mobile *plan: continue supportive care till surgery Subjective: Feels ok. Still having significant pain. Eating well. No other issues. Objective: Vital Signs Temp Pulse Resp BP Pulse Ox 36.8 C 65 14 169/93 H 94 08/30/17 07:43 08/30/17 08:12 08/30/17 07:43 08/30/17 08:12 08/30/17 07:43 08/29/17 08/30/17 08/31/17 05:59 05:59 05:59 Intake Total 120 1000 Output Total 825 500 Balance -705 1000 -500 - Physical Exam Constitutional: no apparent distress, appears nourished, uncomfortable Eyes: PERRL, anicteric sclera, EOMI Ears, Nose, Mouth, Throat: moist mucous membranes, hearing normal, ears appear normal Cardiovascular: No JVD, No tachycardia, No edema Respiratory: no respiratory distress, no rales or rhonchi, clear to auscultation Gastrointestinal: normoactive bowel sounds, No tenderness, No ascites Skin: warm, normal color, No mottled Musculoskeletal: pain with ROM, muscular tenderness, generalized weakness Neurologic: AAOx3 Psychiatric: interacting appropriately, not anxious, not encephalopathic, thought process linear ICD10 Worksheet Patient Problems: Problems Problem Status Onset Lower GI bleed Acute Intractable low back pain Acute Lumbar disc herniation Acute
[2017-08-30] MEDS: ATORVASTATIN CALCIUM 40 MG TAB PO SCH (22:18)
[2017-08-30] MEDS: CYANO/VITAMIN B12 1000 MCG TAB PO SCH (22:18)
[2017-08-30] MEDS: CHOLECALCIFEROL VIT D3 2,000 UNITS TAB/CAP PO SCH (22:18)
[2017-08-30] MEDS: FAMOTIDINE 20 MG TAB PO SCH (22:19)
[2017-08-30] MEDS: LATANOPROST 0.005% 2.5 ML OPHT DROPS LEFTEYE SCH (22:26)
[2017-08-31] MEDS ORDERED: methylPREDNISolone 4 MG TAB PO SCH (07:30)
--- NOTE | 2017-08-31 08:25 | NEUSURGPN ---
Assessment/Plan: Assessment: 62 yr old male with L3-4 lateral recess disc herniation with L4 nerve compression Plan: -Bilateral L3-4 TFESI and SRB without improvement in his symptoms, pain increases when out of bed -Dr Cabrera has spoken with patient today about surgical options. We would like him to be off his Plavix x7days prior to surgery (09/01). Surgery on Sunday 09/03 = L3-S1 TLIF with laminectomy/foraminotomies -NPO after midnight on Sunday -Discussed risks of surgery with pt. Consents signed and in chart -Continue to hold Plavix and ASA -PT/OT -Patient discussed with Dr Cabrera -NS will see patient again on Sunday to make sure he is ready for surgery the following day Please call neurosurgery with questions/concerns Subjective: Pt resting in bed, wants to know if he can try a muscle relaxant Objective: AAOx3 NAD VSS MAEx4 Motor 08/25 BLE +LT Urinary Catheter in Place: No - Physician Discussed Patient with : Deborah Neurosurgery Physical Exam - Vitals, I&O, Labs I and O 08/30/17 08/31/17 09/01/17 05:59 05:59 05:59 Intake Total 1000 100 Output Total 500 1 Balance 1000 -500 99 Intake: Oral (ml) 1000 100 Output: Urine (ml) 500 1 Toilet 1 Urinal 500 Other: Intake Quantity Yes Sufficient Number of Voids Toilet 2 Urinal 65 2 Number of Stools Toilet 1 Vital Signs Temp Pulse Resp BP Pulse Ox 36.8 C 66 20 159/95 H 96 08/31/17 07:26 08/31/17 07:26 08/31/17 07:26 08/31/17 07:26 08/31/17 07:26 ICD10 Worksheet Patient Problems: Problems Problem Status Onset Intractable low back pain Acute Lumbar disc herniation Acute Lower GI bleed Acute
[2017-08-31] MEDS: SENNOSIDES/DOCUSATE SODIUM TAB PO SCH ×2 (08:34→22:49)
[2017-08-31] MEDS: DULoxetine 20 MG CAP PO SCH (08:35)
[2017-08-31] MEDS: ACETAMINOPHEN 325 MG TAB PO PRN (08:35)
[2017-08-31] MEDS: LISINOPRIL 10 MG TAB PO SCH (08:36)
[2017-08-31] MEDS: MAGNESIUM OXIDE 400 MG TAB PO SCH (08:36)
[2017-08-31] MEDS: PANTOPRAZOLE SODIUM 40 MG TAB PO SCH (08:36)
[2017-08-31] MEDS: DILTIAZEM CD 120 MG CAP PO SCH (08:37)
[2017-08-31] MEDS: METOPROLOL TARTRATE 25 MG TAB PO SCH ×2 (08:37→21:37)
[2017-08-31] MEDS: ENOXAPARIN 40 MG/0.4 ML SYR SC SCH (08:38)
[2017-08-31] MEDS: METHOCARBAMOL 750 MG TAB PO PRN (11:00)
--- NOTE | 2017-08-31 11:23 | HOSPPROG ---
Hospitalist Progress Note Assessment/Plan: Edin is a 62 y/o male who had a laminectomy in 2009. His back pain went away but cont to have numbness. He saw a chiropractor who helped with the numbness but then the pain returned. He had an MRI performed which showed L3- L4 disk herniation w compression of the L4 nerve root and severe foraminal stenosis at multiple levels. * Disk herniation with right L4 radiculopathy due to nerve root compression -s/p bilateral CATALINA without significant improvement of symptoms -to have surgery Sunday most likely; will need to stay off Plavix and aspirin * CAD/stent -holding ASA/Plavix for procedure -previously cleared for surgery by cardiology -stents were placed multiple years ago * ELIZABETH -O2 at night * Afib s/p ablation -continue diltiazem -LINQ monitor in place * Stable asthma -no s/sx of any exacerbation * Peripheral neuropathy (chronic) *Leg swelling -no clot per US *dvt prophylaxis: LMWH initiated. This will need to be stopped after Sunday's dose for surgery on Sunday. -patient has not been very mobile *plan: continue supportive care till surgery Subjective: Still having pain. no other issues. Objective: Vital Signs Temp Pulse Resp BP Pulse Ox 36.8 C 74 20 159/95 H 96 08/31/17 07:26 08/31/17 08:37 08/31/17 07:26 08/31/17 08:37 08/31/17 07:26 08/30/17 08/31/17 09/01/17 05:59 05:59 05:59 Intake Total 1000 100 Output Total 500 1 Balance 1000 -500 99 - Physical Exam Constitutional: no apparent distress, appears nourished, uncomfortable Eyes: PERRL, anicteric sclera Ears, Nose, Mouth, Throat: moist mucous membranes, hearing normal Cardiovascular: No JVD, No edema Respiratory: no respiratory distress, no rales or rhonchi Gastrointestinal: No tenderness, No ascites Skin: warm, normal color Musculoskeletal: pain with ROM, muscular tenderness, generalized weakness Neurologic: AAOx3 Psychiatric: interacting appropriately, not anxious, not encephalopathic, thought process linear ICD10 Worksheet Patient Problems: Problems Problem Status Onset Lower GI bleed Acute Intractable low back pain Acute Lumbar disc herniation Acute
--- NOTE | 2017-08-31 15:58 | ASMTCMCOM ---
CM Note CM Note Notes: Pt scheduled for L3-S1 TLIF with laminectomy Sunday09/03/17. CM to follow pt progress after surgery for discharge needs. Date Signed: 08/31/2017 03:57 PM Electronically Signed By:REY Coyne
[2017-08-31] MEDS: ATORVASTATIN CALCIUM 40 MG TAB PO SCH (21:36)
[2017-08-31] MEDS: CHOLECALCIFEROL VIT D3 2,000 UNITS TAB/CAP PO SCH (21:36)
[2017-08-31] MEDS: FAMOTIDINE 20 MG TAB PO SCH (21:37)
[2017-08-31] MEDS: CYANO/VITAMIN B12 1000 MCG TAB PO SCH (21:37)
[2017-08-31] MEDS: LATANOPROST 0.005% 2.5 ML OPHT DROPS LEFTEYE SCH (21:40)
[2017-09-01] MEDS: HYDROCODONE/APAP 5/325 TAB PO PRN ×2 (00:22→12:27)
[2017-09-01] MEDS: METHOCARBAMOL 750 MG TAB PO PRN ×2 (00:24→16:28)
[2017-09-01] MEDS: oxyCODONE IR 5 MG TAB PO PRN (07:20)
[2017-09-01] MEDS: DILTIAZEM CD 120 MG CAP PO SCH (09:34)
[2017-09-01] MEDS: DULoxetine 20 MG CAP PO SCH (09:35)
[2017-09-01] MEDS: LISINOPRIL 10 MG TAB PO SCH (09:35)
[2017-09-01] MEDS: ENOXAPARIN 40 MG/0.4 ML SYR SC SCH (09:35)
[2017-09-01] MEDS: MAGNESIUM OXIDE 400 MG TAB PO SCH (09:36)
[2017-09-01] MEDS: METOPROLOL TARTRATE 25 MG TAB PO SCH ×2 (09:36→21:15)
[2017-09-01] MEDS: PANTOPRAZOLE SODIUM 40 MG TAB PO SCH (09:36)
[2017-09-01] MEDS: SENNOSIDES/DOCUSATE SODIUM TAB PO SCH ×2 (09:37→21:18)
--- NOTE | 2017-09-01 10:31 | HOSPPROG ---
Hospitalist Progress Note Assessment/Plan: # L3-4 disk herniation with L4 nerve root compression - failed CATALINA - plan for T3-S1 fusion on Sunday - hold lovenox after dose tomorrow - cont pain control # CAD s/p PCI in 2008 - holding asa/plavix - MPI 1 year ago negative - cont BB through surgery # paroxysmal a-fib s/p ablation in 2004 - on metop and dilt - has LINQ # ELIZABETH - nocturnal OP2 # asthma, stable # peripheral neuropathy - cymbalta # leg edema - no DVT # dvt ppx - lovenox, hold after dose tomorrow Subjective: ongoing leg pain; denies CP/SOB/N/V; he is having BMs Objective: Vital Signs Temp Pulse Resp BP Pulse Ox 36.9 C 59 L 14 141/84 H 95 09/01/17 07:58 09/01/17 07:58 09/01/17 07:58 09/01/17 07:58 09/01/17 07:58 08/31/17 09/01/17 09/02/17 05:59 05:59 05:59 Intake Total 1100 Output Total 500 1 Balance -500 1099 chart reviewed MRI reviewed - Physical Exam Constitutional: no apparent distress, appears nourished Cardiovascular: regular rate and rhythym, no murmur, rub, or gallop Respiratory: no respiratory distress, no rales or rhonchi, clear to auscultation Gastrointestinal: soft, non-tender abdomen, no palpable masses, No guarding, No rebound, No distension ICD10 Worksheet Patient Problems: Problems Problem Status Onset Intractable low back pain Acute Lumbar disc herniation Acute Lower GI bleed Acute
[2017-09-01] MEDS: ACETAMINOPHEN 325 MG TAB PO PRN (16:28)
[2017-09-01] MEDS: ATORVASTATIN CALCIUM 40 MG TAB PO SCH (21:15)
[2017-09-01] MEDS: CYANO/VITAMIN B12 1000 MCG TAB PO SCH (21:15)
[2017-09-01] MEDS: FAMOTIDINE 20 MG TAB PO SCH (21:15)
[2017-09-01] MEDS: CHOLECALCIFEROL VIT D3 2,000 UNITS TAB/CAP PO SCH (21:15)
[2017-09-01] MEDS: LATANOPROST 0.005% 2.5 ML OPHT DROPS LEFTEYE SCH (21:19)
[2017-09-02] MEDS: METHOCARBAMOL 750 MG TAB PO PRN (05:31)
[2017-09-02] MEDS: ENOXAPARIN 40 MG/0.4 ML SYR SC SCH (08:48)
[2017-09-02] MEDS: DULoxetine 20 MG CAP PO SCH (08:48)
[2017-09-02] MEDS: DILTIAZEM CD 120 MG CAP PO SCH (08:48)
[2017-09-02] MEDS: MAGNESIUM OXIDE 400 MG TAB PO SCH (08:49)
[2017-09-02] MEDS: METOPROLOL TARTRATE 25 MG TAB PO SCH ×2 (08:49→21:27)
[2017-09-02] MEDS: LISINOPRIL 10 MG TAB PO SCH (08:49)
[2017-09-02] MEDS: PANTOPRAZOLE SODIUM 40 MG TAB PO SCH (08:50)
[2017-09-02] MEDS: SENNOSIDES/DOCUSATE SODIUM TAB PO SCH ×2 (08:50→21:27)
[2017-09-02] MEDS ORDERED: ceFAZolin 2 GM/SWFI 2 GM/20 ML SYR IVP ONE (09:30)
--- NOTE | 2017-09-02 10:06 | NEUSURGPN ---
Assessment/Plan: Assessment: 62 yr old male with L3-4 lateral recess disc herniation with L4 nerve compression Plan: -Bilateral L3-4 TFESI and SRB without improvement in his symptoms, pain increases when out of bed -Dr Cabrera has spoken with patient today about surgical options. We would like him to be off his Plavix x7days prior to surgery (09/01). 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 Had dose this AM which is ok -Discussed risks of surgery with pt. Consents signed and in chart -Continue to hold Plavix and ASA -PT/OT Please call neurosurgery with questions/concerns Subjective: Pt resting in bed, ready for surgery tomorrow. No change in sx Objective: AAOx3 NAD VSS MAEx4 Motor 08/25 BLE +LT but has numbness BLE Urinary Catheter in Place: No Neurosurgery Physical Exam - Vitals, I&O, Labs I and O 09/01/17 09/02/17 09/03/17 05:59 05:59 05:59 Intake Total 1100 1500 Output Total 1 Balance 1099 1500 Intake: Oral (ml) 1100 1500 Output: Urine (ml) 1 Toilet 1 Other: Intake Quantity Yes Yes Sufficient Number of Voids Toilet 1 2 Urinal 2 Vital Signs Temp Pulse Resp BP Pulse Ox 36.8 C 68 16 144/83 H 98 09/02/17 07:45 09/02/17 07:45 09/02/17 07:45 09/02/17 07:45 09/02/17 07:45 ICD10 Worksheet Patient Problems: Problems Problem Status Onset Intractable low back pain Acute Lumbar disc herniation Acute Lower GI bleed Acute
[2017-09-02] MEDS: HYDROCODONE/APAP 5/325 TAB PO PRN ×3 (10:07→19:24)
--- NOTE | 2017-09-02 12:53 | HOSPPROG ---
Hospitalist Progress Note Assessment/Plan: # L3-4 disk herniation with L4 nerve root compression - failed CATALINA - plan for T3-S1 fusion tomorrow (hold lovenox, NPO p girish) - cont pain control - patient has requested a SQL DATABASE DEVELOPER post-op # CAD s/p PCI in 2008 - holding asa/plavix - MPI 1 year ago negative - cont BB through surgery # paroxysmal a-fib s/p ablation in 2004 - on metop and dilt - has LINQ # ELIZABETH - nocturnal O2 # asthma, stable # peripheral neuropathy - cymbalta # leg edema - no DVT # dvt ppx - hold lovenox, restart per nsg Subjective: quickly gets leg pain when he ambulates Objective: Vital Signs Temp Pulse Resp BP Pulse Ox 36.8 C 68 16 144/83 H 98 09/02/17 07:45 09/02/17 07:45 09/02/17 07:45 09/02/17 07:45 09/02/17 07:45 09/01/17 09/02/17 09/03/17 05:59 05:59 05:59 Intake Total 1100 1500 Output Total 1 Balance 1099 1500 - Physical Exam Constitutional: no apparent distress, appears nourished Cardiovascular: regular rate and rhythym, no murmur, rub, or gallop Respiratory: no respiratory distress, no rales or rhonchi, clear to auscultation Gastrointestinal: soft, non-tender abdomen, no palpable masses, No guarding, No rebound, No distension ICD10 Worksheet Patient Problems: Problems Problem Status Onset Lower GI bleed Acute Intractable low back pain Acute Lumbar disc herniation Acute
[2017-09-02] MEDS: CYANO/VITAMIN B12 1000 MCG TAB PO SCH (21:27)
[2017-09-02] MEDS: FAMOTIDINE 20 MG TAB PO SCH (21:27)
[2017-09-02] MEDS: CHOLECALCIFEROL VIT D3 2,000 UNITS TAB/CAP PO SCH (21:27)
[2017-09-02] MEDS: ATORVASTATIN CALCIUM 40 MG TAB PO SCH (21:27)
[2017-09-02] MEDS: LATANOPROST 0.005% 2.5 ML OPHT DROPS LEFTEYE SCH (21:30)
[2017-09-03] MEDS: oxyCODONE IR 5 MG TAB PO PRN (04:58)
[2017-09-03] MEDS ORDERED: ceFAZolin 2 GM/SWFI 2 GM/20 ML SYR IVP ONE (06:00)
[2017-09-03] MEDS ORDERED: LR 1,000 ML IV ONE (06:14)
[2017-09-03] MEDS ORDERED: HYDROmorphONE/DILAUDID 2 MG/ML INJ ONE ×3 (06:24→11:35)
[2017-09-03] MEDS ORDERED: HYDROmorphONE/DILAUDID 2 MG/ML INJ IVP ONE (06:45)
[2017-09-03] MEDS ORDERED: CHLORHEXIDINE GLUC HIBICLENS 118 ML BTL TP ONE (06:50)
[2017-09-03] MEDS ORDERED: THROMBIN (BOVINE) 20,000 UNIT VIAL TP ONE (06:50)
[2017-09-03] MEDS ORDERED: EPINEPHrine 1 MG/ML INJ ONE (06:51)
[2017-09-03] MEDS ORDERED: BUPIVACAINE 0.25% 30 ML SDV ONE (06:51)
[2017-09-03] MEDS ORDERED: BACITRACIN 50,000 UNITS/10 ML SYR IRR ONE (06:51)
--- NOTE | 2017-09-03 06:59 | PDHPUP ---
History & Physical Update H&P update statement: This history and physical update is based on an assessment of the patient which was completed after admission or registration (within 24 hours), but prior to the surgery/procedure. H&P update: H&P reviewed & patient examined, no change in patient's condition since H&P completed
[2017-09-03] MEDS ORDERED: fentaNYL 250 MCG/5 ML INJ ONE (07:14)
[2017-09-03] MEDS ORDERED: PROPOFOL/EMULSION 500 MG/50 ML BOTTLE IV ONE ×3 (07:16→11:35)
[2017-09-03] MEDS ORDERED: MIDAZOLAM 2 MG/2 ML VIAL ONE (07:16)
--- NOTE | 2017-09-03 07:16 | PDANEPAE ---
ANE Past Medical History - Cardiovascular History Hx Hypertension: Yes Hx Arrhythmias: Yes Hx Coronary Artery / Peripheral Vascular Disease: Yes - Pulmonary History Hx COPD: No Hx Asthma/Reactive Airway Disease: Yes Hx Oxygen in Use at Home: No Hx Sleep Apnea: Yes Sleep Apnea Screening Result - Last Documented: Positive - Endocrine History Hx Diabetes: No Hypothyroid: No Hyperthyroid: No Obesity: no - Chronic Pain History Chronic Pain: Yes (SOME BACK PAIN/NUMB LEGS) ANE Review of Systems Review of Systems: ANE Patient History - Allergies Allergies/Adverse Reactions: No Allergies [NKDA] Allergy (Verified 04/10/17 23:21) - Home Medications Home Medications: Albuterol [Proventil Inhaler HFA (*)] 1 - 2 puffs IH Q4HRS PRN 08/26/17 [Last Taken Unknown] Albuterol [Proventil Neb] 3 ml IH QID PRN 08/26/17 [Last Taken Unknown] Aspirin EC [Aspirin EC 81 mg (*)] 81 mg PO DAILY 08/26/17 [Last Taken 08/25/17] Atorvastatin Calcium [Lipitor 40 mg (*)] 80 mg PO HS 08/26/17 [Last Taken ] Cholecalciferol Vit D3 [Vitamin D3 2000 units tab (OTC)] 2,000 units PO HS 08/26 [Last Taken 08/25/17] Clopidogrel Bisulfate [Plavix (*)] 75 mg PO DAILY 08/26/17 [Last Taken 08/25/17] Cyanocobalamin [Vitamin B12 (*)] 1,000 mcg PO HS 08/26/17 [Last Taken 08/25/17] DULoxetine [Cymbalta 20 MG (RX)] 40 mg PO DAILY 08/26/17 [Last Taken 08/25/17] Diltiazem HCl [Cartia Xt] 120 mg PO DAILY 08/26/17 [Last Taken 08/25/17] Eszopiclone [Lunesta] 3 mg PO HS PRN 08/26/17 [Last Taken Unknown] Hydrocodone/Acetaminophen [Fitzgerald 5/325 (*)] 1 tab PO Q6HRS PRN 08/26/17 [Last Taken 08/25/17] Indomethacin [Indocin 25 mg (*)] 25 mg PO Q6HRS PRN 08/26/17 [Last Taken Unknown ] LORazepam [Ativan (*)] 1 mg PO HS PRN 08/26/17 [Last Taken 08/25/17] Latanoprost 0.005% [Xalatan 0.005% (*)] 1 drops LEFTEYE HS 08/26/17 [Last Taken 08/24/17] Lisinopril [Zestril 10 mg (*)] 10 mg PO DAILY 08/26/17 [Last Taken 08/25/17] Magnesium Oxide [Magnesium] 500 mg PO HS 08/26/17 [Last Taken 08/25/17] Metoprolol Tartrate [Lopressor 25 mg (*)] 25 mg PO BID 08/26/17 [Last Taken 09/07] [place]-3 Fatty Acids [Fish Oil 1000 mg (*)] 1,000 mg PO HS 08/26/17 [Last Taken 08/25/17] [place]-3 Fatty Acids [Fish Oil 1000 mg (*)] 2,000 mg PO BID@08/26/17 [Last Taken 08/25/17] Pantoprazole Sodium [Protonix 40mg (*)] 40 mg PO DAILY 08/26/17 [Last Taken 09/07] Ranitidine HCl [Zantac] 300 mg PO HS 08/26/17 [Last Taken 08/12/17] Ubidecarenone [Co Q-10 200 mg] 200 mg PO HS 08/26/17 [Last Taken 08/25/17] methylPREDNISolone [Medrol Dose Yohannes] 1 each PO AD 08/26/17 [Last Taken 08/25/17] - NPO status NPO Since - Liquids (Date): 09/03/17 NPO Since - Liquids (Time): 00:00 NPO Since - Solids (Date): 09/03/17 NPO Since - Solids (Time): 00:00 - Smoking Hx Smoking Status: Never smoked ANE Labs/Vital Signs - Labs Result Diagrams: 08/26/17 09:24 - Vital Signs Blood Pressure: 149/85 Heart Rate: 66 Respiratory Rate: 16 O2 Sat (%): 97 Height: 190.5 cm Weight: 102.058 kg ANE Physical Exam - Airway Neck exam: FROM Mallampati Score: Class 1 Mouth exam: normal dental/mouth exam - Pulmonary Pulmonary: no respiratory distress - Cardiovascular Cardiovascular: regular rate and rhythym - ASA Status ASA Status: II ANE Anesthesia Plan Anesthesia Plan: general endotracheal anesthesia
[2017-09-03] MEDS ORDERED: TRANEXAMIC ACID 1,000 MG/10 ML VIAL ONE (07:22)
[2017-09-03] MEDS ORDERED: ROCURONIUM 100 MG/10 ML VIAL ONE (07:39)
[2017-09-03] MEDS ORDERED: REMIFENTANIL HCL 1 MG VIAL ONE ×3 (07:40→12:24)
[2017-09-03] MEDS ORDERED: LIDOCAINE 2% 5 ML SDV ONE (09:06)
--- NOTE | 2017-09-03 09:28 | ASMTCMCOM ---
CM Note CM Note Notes: Patient to OR today for T3-S1 fusion. PT/OT will evaluate post-operatively. Patient is normally independent, lives alone. Has supportive children in the area. Case Management will follow for discharge needs. Date Signed: 09/03/2017 09:28 AM Electronically Signed By:Ami Medina RN
[2017-09-03] MEDS ORDERED: PROPOFOL 200 MG/20 ML VIAL ONE ×3 (09:45→13:06)
[2017-09-03] MEDS: MAGNESIUM OXIDE 400 MG TAB PO SCH (11:53)
[2017-09-03] MEDS ORDERED: morphINE PF 5 MG/10 ML INJ ONE (12:18)
[2017-09-03] MEDS ORDERED: TRANEXAMIC ACID 1,000 MG in NS 100 ML IV ONE (12:22)
[2017-09-03] MEDS ORDERED: ceFAZolin 1 GM VIAL ONE ×2 (12:37)
[2017-09-03] MEDS ORDERED: fentaNYL 100 MCG/2 ML INJ IVP PRN (13:02)
[2017-09-03] MEDS ORDERED: NALOXONE HCL 0.4 MG/ML INJ IVP PRN (13:02)
[2017-09-03] MEDS ORDERED: LR 500 ML IV PRN (13:02)
[2017-09-03] MEDS ORDERED: HYDROmorphONE/DILAUDID 2 MG/ML INJ IVP PRN (13:02)
[2017-09-03] MEDS ORDERED: diphenhydrAMINE 25 MG CAP PO PRN (13:34)
[2017-09-03] MEDS ORDERED: LABETALOL HCL 5 MG/ML 20 ML MDV ONE (13:36)
[2017-09-03] MEDS ORDERED: HYDROmorphone HCL/NS 0.5 MG/ML SYR IVP PRN (13:38)
[2017-09-03] MEDS: LABETALOL HCL 5 MG/ML 20 ML MDV IV PRN ×2 (13:40→14:13)
[2017-09-03] MEDS ORDERED: NS W/ 20 KCl/L 1,000 ML IV SCH (13:45)
[2017-09-03] MEDS ORDERED: fentaNYL 100 MCG/2 ML INJ ONE (14:07)
[2017-09-03] MEDS ORDERED: morphINE PF 5 MG/10 ML INJ IT ONE (14:13)
--- NOTE | 2017-09-03 14:13 | POSTOPPROG ---
Post Op Note Date of Operation: 09/03/17 Surgeon: Leo Cabrera Skin Piler: Josette Slater Anesthesia: GET(General Endotracheal) Pre-op Diagnosis: Lumbar stenosis with radiculopathy Post-op Diagnosis: same Procedure: L3-S1 TLIF with L3-S1 posterior fusion Inf/Abcess present in the surg proc area at time of surgery?: No Depth: Organ Space EBL: 200 Complications: none observed Drains: Michael Dorantes SOAP Progress Note Assessment/Plan: Assessment: Plan: S: Recovering in PACU Comfortable at rest O: NAD, VSS, Alert, awake and talking CN II-XII intact Moving all extremities to command Strength 5/5 in all extremities FLORY Drain in place to suction Pt laying flat Incision c/d/i [place] in place A/P: 62yo male s/p L3-S1 TLIF for right leg pain with intraoperative CSF leak Admit to med/surg Pt to lay flat for 24 hrs until 1300 on 09/04/2017 can raise head to 10 deg for eating Bed rest until can get out of bed Fitted for brace LSO PT/OT Post op xrays on 09/04/2017 if able Optimize pain control 0.1 mg of Duramorph given at 1200 Lovenox to start 24hrs post op 09/03/17 13:58 Objective: Vital Signs Temp Pulse Resp BP Pulse Ox 36.7 C 66 15 156/85 H 97 09/03/17 06:39 09/03/17 07:16 09/03/17 13:39 09/03/17 13:39 09/03/17 13:39 09/02/17 09/03/17 09/04/17 05:59 05:59 05:59 Intake Total 1500 Balance 1500
[2017-09-03] MEDS ORDERED: NS 1,000 ML IV SCH (14:30)
[2017-09-03] MEDS: METOPROLOL TARTRATE 25 MG TAB PO SCH ×2 (15:15→22:32)
--- NOTE | 2017-09-03 15:15 | HOSPPROG ---
Hospitalist Progress Note Assessment/Plan: Edin is a 62 y/o male who had a laminectomy in 2009. His back pain went away but cont to have numbness.He saw a chiropractor who helped with the numbness but then the pain returned. He had an MRI performed which showed L3- L4 disk herniation w compression of the L4 nerve root and severe foraminal stenosis at multiple levels. # L3-4 disk herniation with L4 nerve root compression - failed CATALINA -s/p L3-S1 TLIF w fusion - patient has requested a LEVERMAN post-op -he received intrathecal morphine, will hold off on LEVERMAN for now, pain is at a level 2 # CAD s/p PCI in 2008 - holding asa/Plavix - MPI 1 year ago negative - cont BB through surgery # paroxysmal a-fib s/p ablation in 2004 - on metop and dilt - has LINQ # ELIZABETH - nocturnal O2 # asthma, stable # peripheral neuropathy - Cymbalta # leg edema - no DVT # dvt ppx - hold lovenox, restart per nsg #Plan: continue supportive care, patient to lie flat overnight (small dura tear) , continue chacon while immobile. Subjective: Winston is feeling well, has no complaints. Objective: Vital Signs Temp Pulse Resp BP Pulse Ox 37.1 C 95 15 146/82 H 93 09/03/17 14:51 09/03/17 14:51 09/03/17 14:51 09/03/17 14:51 09/03/17 14:51 09/02/17 09/03/17 09/04/17 05:59 05:59 05:59 Intake Total 1500 2525 Output Total 1230 Balance 1500 1295 - Physical Exam Constitutional: no apparent distress, appears nourished Eyes: PERRL Ears, Nose, Mouth, Throat: hearing normal Cardiovascular: regular rate and rhythym Respiratory: no respiratory distress Skin: warm Neurologic: AAOx3 Psychiatric: interacting appropriately ICD10 Worksheet Patient Problems: Problems Problem Status Onset Intractable low back pain Acute Lumbar disc herniation Acute Lower GI bleed Acute
[2017-09-03] MEDS: METHOCARBAMOL 750 MG TAB PO PRN (15:33)
[2017-09-03] MEDS: ACETAMINOPHEN 500 MG TAB PO SCH ×2 (15:33→23:39)
[2017-09-03] MEDS: DILTIAZEM CD 120 MG CAP PO SCH (15:33)
[2017-09-03] MEDS: LISINOPRIL 10 MG TAB PO SCH (15:33)
[2017-09-03] MEDS: SENNOSIDES/DOCUSATE SODIUM TAB PO SCH ×2 (15:34→23:41)
[2017-09-03] MEDS: PANTOPRAZOLE SODIUM 40 MG TAB PO SCH (15:34)
[2017-09-03] MEDS: DULoxetine 20 MG CAP PO SCH (15:35)
--- NOTE | 2017-09-03 17:00 | GOP ---
[f rep st] OPERATIVE REPORT DATE OF OPERATION: 09/03/2017 SURGEON: Leo Cabrera MD NEUROSURGEON: Leo Cabrera MD. VERIFICATION SPECIALIST: Gabrielle Monzon PA-C. PREOPERATIVE DIAGNOSIS: Right L4 radiculopathy with severe degenerative disk disease, low back pain, and bilateral foraminal stenoses. POSTOPERATIVE DIAGNOSIS: Right L4 radiculopathy with severe degenerative disk disease, low back pain , and bilateral foraminal stenoses. PROCEDURE PERFORMED: 1. L3 to S1 transforaminal lumbar interbody fusions. 2. Placement of interbody device, L3-4, L4-5, L5-S1. 3. Placement of pedicle screw fixation, L3, L4, L5, S1. 4. Posterolateral fusion, L3 to S1. 5. Varina of local autograft. 6. Use of allograft, bone morphogenetic protein, and Magnifuse bone chips. 7. Use of the operative microscope. 8. O-arm/Stealth stereotactic navigation for screw placement and cage navigation. 9. Hemilaminectomies L3, L4, L5. FINDINGS: Successful TLIF. SPECIMENS: There were no specimens. ESTIMATED BLOOD LOSS: 200 cc. INDICATIONS: The patient is a 62-year-old man who presents at this time with a right-sided acute L4 radiculopathy. He has had previous L4 and L5 laminectomies by Dr. Harmon several years back. H is MRI shows acute disk herniation at L3-4 with caudal migration along the L4 nerve root and some com pression in the lateral recess. He also has severe degenerative disk disease with severe degenerativ e endplate changes at L3-4 and L4-5 as well as L5-S1. There is cdqxmuql-fi-qzjeet foraminal stenosis on both sides, but he does not currently have left leg pain. DESCRIPTION OF PROCEDURE: After informed consent was obtained from the patient, the patient was brou ght to the operating room and a formal time-out was performed, identifying the patient by name, medic al record number, and date of . Preoperative antibiotics were given. The endotracheal tube was placed and general endotracheal anesthesia was smoothly induced. All appropriate monitoring electro manoj were placed for intraoperative somatosensory-evoked potentials and EMG. The patient was then tur hilario to the prone position on the Michael table and all appropriate pressure points were padded and ch ecked. The lumbar region was then prepped and draped in the normal sterile fashion. A midline lumbar skin incision was marked and the incision was made using a 10 blade. The subcutaneo us tissues were dissected using monopolar electrocautery, and the fascia was then opened in the midli ne. The paraspinous muscles were taken down from the spinous processes and laminae bilaterally, expo sing the complete laminae of L3, L4, L5, and upper portion of the sacrum. During this dissection a s mall CSF leak was noted at the sacrum, which was just a pinhole, and this was covered with Gelfoam an d stopped, as well as with Valsalva. Once the laminae and facets from L3 to S1 were identified, the stereotactic frame was placed on the L 5 spinous process and an O-arm spin was done confirming all the appropriate anatomy. We then localiz ed each pedicle entry point using navigation, and each pedicle entry point was decorticated. Each pe dicle was then tapped using a 4.5 to 5.5 mm graduated tap, and then each screw was placed. We then p laced Medtronic Solara screws at each level in the following order: At L3, we placed a 6.5 x 60 mm s crew on the left and a 6.5 x 55 mm screw on the right. At L4, a 6.5 x 60 mm screw was placed on the left and a 6.5 x 60 mm screw was placed on the right. At L5, a 6.5 x 60 mm screw was placed on the l eft and a 6.5 x 55 mm screw on the right. At S1, a 6.5 x 55 mm screw was placed on the left and 6.5 x 60 mm screw was placed on the right. The sacral screws were aimed at the sacral promontory with th e goal to be bicortical. Each screw head was then stimulated using the neuromonitoring, and all stim ulated below threshold levels. At this point, we went to the right side and the high-speed drill was used to drill through the pars and lamina just inferior to the L3 pedicle, and another trough was drilled superior to the L4 pedicle . We completely removed the pars, decompressing the foramen and unroofing it completely. The dura w as identified medially and unfortunately, a small dural tear was visualized in that area. This was c overed with Gelfoam and stopped bleeding for the time being. The inferior facet was completely remov ed and the superior facet of L4 was also removed, completely unroofing the foramen and the exiting ne rve root. The traversing nerve root was visualized, and this was completely decompressed, and a smal l piece of disk fragment was removed. We were then able to enter into the disk space and the disk wa s completely removed and the cartilaginous endplates were scraped from the endplates as well. Once t he disk space was completely prepared, the locally harvested morselized autograft was combined with s ome BMP and Magnifuse bone chips, and these were placed across contralaterally into the disk space. A 9 x 28 mm Medtronic elevated cage was then packed with BMP and some autograft, and this was placed stereotactically into the disk space and opened to its full extent. Further bone graft was packed ip silaterally to the side of the cage for the interbody fusion. We then turned our attention toward the area of the CSF leak. There were a few fibers of the nerve r oot which were exiting, and I was able to get a watertight closure on this dural tear with a 6-0 Prol amna. All neuromonitoring remained stable throughout the case. We then turned our attention to L4-5 where again, the inferior and superior facets of L4 and L5, resp ectively, were removed. The traversing nerve root was visualized and retracted medially, and the dis k space was entered. The disk, again, was completely removed and the cartilaginous endplates were re moved. Once the disk space was completely cleaned again, some BMP and autograft/allograft mixture wa s placed into the disk space. This was again sized for a 9 x 28 mm Medtronic Elevate cage, which was packed with BMP and locally harvested autograft and again placed into the disk space stereotacticall y and opened to its full extent. The same procedure was then performed at L5-S1, completely decompressing the foramen on the right debra e, exiting the L5 nerve root and completely cleaning the disk space. The disk space was then again f illed with BMP and autograft, and a 9 x 28 mm Medtronic Elevate cage was again placed into the L5-S1 disk space after being packed with BMP and autograft. It was opened to its full extent, and bone gra ft that was again packed laterally to the cage. At this point, the O-arm was brought onto the field and another spin was obtained showing all the scr ews were in excellent placement within the pedicles and also good cage placement for fusion. At this point, the wound was copiously irrigated using bacitracin irrigation. Some Gelfoam was place d over the exposed dura. Both sides of the screw heads were sized for a 4.75 x 90 mm Medtronic Trita nium rods, which were locked into the screw heads and tightened to their final torque. The facet micky nts and laminae on the left side were then decorticated using the high-speed drill, and the remaining BMP allograft and autograft were placed or this area for a posterolateral fusion from L3 to S1. At this point, all the bleeding was controlled using bipolar electrocautery and Gelfoam. A 10-Stateless FLORY drain was placed in the lateral gutter. Prior to the final closure, 0.1 mg of Duramorph was inje cted intrathecally for postoperative pain control. The fascia was then closed in the midline using i nterrupted 0 Vicryl. 60 cc of 0.25% Marcaine with epinephrine was infiltrated into the skin and subc utaneous tissues as well as the muscle for postoperative analgesia. The superficial fascia was close d using interrupted 0 Vicryl. The deep dermis was closed using interrupted 2-0 Vicryl, and the skin was closed using Dermabond. Sterile dressings were placed. The patient was awakened in the operating room and was transferred to the PACU in stable condition. There were no operative complications. I was scrubbed and present for the entire procedure. All sponge and needle counts were correct at the end of the case. FLUIDS: Per the anesthesia record. URINE OUTPUT: Per the anesthesia record. DRAINS: A subfascial FLORY. /[id number]/MODL
[2017-09-03] MEDS: ceFAZolin 2 GM/DEXTROSE 100 ML IV SCH (22:30)
[2017-09-03] MEDS: morphINE SR 15 MG TAB PO SCH (22:32)
[2017-09-03] MEDS: ATORVASTATIN CALCIUM 40 MG TAB PO SCH (23:40)
[2017-09-03] MEDS: CYANO/VITAMIN B12 1000 MCG TAB PO SCH (23:41)
[2017-09-03] MEDS: FAMOTIDINE 20 MG TAB PO SCH (23:41)
[2017-09-03] MEDS: CHOLECALCIFEROL VIT D3 2,000 UNITS TAB/CAP PO SCH (23:41)
[2017-09-03] MEDS: LATANOPROST 0.005% 2.5 ML OPHT DROPS LEFTEYE SCH (23:42)
[2017-09-04] MEDS: ACETAMINOPHEN 500 MG TAB PO SCH ×2 (05:31→13:06)
[2017-09-04] MEDS: ceFAZolin 2 GM/DEXTROSE 100 ML IV SCH (05:31)
[2017-09-04] MEDS ORDERED: morphINE SR 15 MG TAB PO SCH (09:00)
[2017-09-04] MEDS: ENOXAPARIN 40 MG/0.4 ML SYR SC SCH (09:08)
[2017-09-04] MEDS: SENNOSIDES/DOCUSATE SODIUM TAB PO SCH (09:08)
[2017-09-04] MEDS: DILTIAZEM CD 120 MG CAP PO SCH (09:09)
[2017-09-04] MEDS: MAGNESIUM OXIDE 400 MG TAB PO SCH (09:09)
[2017-09-04] MEDS: morphINE SR 15 MG TAB PO SCH ×2 (09:09→21:16)
[2017-09-04] MEDS: LISINOPRIL 10 MG TAB PO SCH (09:09)
[2017-09-04] MEDS: METOPROLOL TARTRATE 25 MG TAB PO SCH ×2 (09:09→21:17)
[2017-09-04] MEDS: PANTOPRAZOLE SODIUM 40 MG TAB PO SCH (09:09)
[2017-09-04] MEDS: DULoxetine 20 MG CAP PO SCH (09:09)
[2017-09-04] MEDS: METHOCARBAMOL 750 MG TAB PO PRN ×2 (09:09→16:16)
--- NOTE | 2017-09-04 09:38 | NEUSURGPN ---
Assessment/Plan: A/P: 62yo male s/p L3-S1 TLIF for right leg pain with intraoperative CSF leak Pt to lay flat until 1300 on 09/04/2017 can raise head to 10 deg for eating Bed rest until can get out of bed Fitted for brace LSO PT/OT Post op xrays pending fir later today Optimize pain control DVT prophx: TEDS, SCDS, Lovenox Please notify NS with any change in neuro/motor exam Subjective: low back pain, foot numbness Objective: O: NAD, VSS, Alert, awake and talking Moving all extremities to command Strength 5/5 in all extremities FLORY Drain in place to suction Incision c/d/i - Physician Discussed Patient with : Deborah Neurosurgery Physical Exam - Vitals, I&O, Labs I and O 09/03/17 09/04/17 09/05/17 05:59 05:59 05:59 Intake Total 2525 Output Total 2915 Balance -390 Weight 102.058 kg Intake: Oral (ml) 25 IV Intake (ml) 2500 Output: Urine (ml) 2400 Catheter 2400 Estimated Blood Loss (ml) 250 FLORY Drain Output (ml) 265 #1 Left Back Michael 265 [place] Other: Intake Quantity Yes Sufficient Number of Voids Catheter 1 Number of Stools Urinal 1 Vital Signs Temp Pulse Resp BP Pulse Ox 37.0 C 81 16 131/81 H 96 09/04/17 08:00 09/04/17 09:09 09/04/17 08:00 09/04/17 09:09 09/04/17 08:00 ICD10 Worksheet Patient Problems: Problems Problem Status Onset Intractable low back pain Acute Lumbar disc herniation Acute Lower GI bleed Acute
[2017-09-04] MEDS: POLYETHYLENE GLYCOL 3350 17 GM PKT PO PRN (13:08)
--- NOTE | 2017-09-04 15:14 | HOSPPROG ---
Hospitalist Progress Note Assessment/Plan: Edin is a 62 y/o male who had a laminectomy in 2009. His back pain went away but cont to have numbness.He saw a chiropractor who helped with the numbness but then the pain returned. He had an MRI performed which showed L3- L4 disk herniation w compression of the L4 nerve root and severe foraminal stenosis at multiple levels. # L3-4 disk herniation with L4 nerve root compression - failed CATALINA -s/p L3-S1 TLIF w fusion with intraoperative CSF leak -has no headache -pain is overall well controlled # CAD s/p PCI in 2008 - holding asa/Plavix - MPI 1 year ago negative - cont BB through surgery #cheek abrasions -add bacitracin # paroxysmal a-fib s/p ablation in 2004 - on metop and dilt - has LINQ # ELIZABETH - nocturnal O2 # asthma, stable # peripheral neuropathy - Cymbalta # leg edema - no DVT # dvt ppx - hold lovenox, restart per nsg #Plan: will ask Neurosurgery when ok to resume Plavix and asa, will remove chacon in a.m. when patient is more mobile. Likely to return home in the next few days, would benefit from home PT. Subjective: Winston is feeling well overall. Objective: Vital Signs Temp Pulse Resp BP Pulse Ox 37.4 C 78 16 130/77 H 93 09/04/17 11:35 09/04/17 11:35 09/04/17 11:35 09/04/17 11:35 09/04/17 11:35 09/03/17 09/04/17 09/05/17 05:59 05:59 05:59 Intake Total 2525 Output Total 2915 800 Balance -390 -800 - Physical Exam Constitutional: no apparent distress, appears nourished, not in pain Eyes: PERRL Ears, Nose, Mouth, Throat: hearing normal Cardiovascular: regular rate and rhythym Respiratory: no respiratory distress Gastrointestinal: normoactive bowel sounds, distension (slight) Genitourinary: chacon in urethra Skin: warm, No normal color (pale) Neurologic: AAOx3 Psychiatric: interacting appropriately ICD10 Worksheet Patient Problems: Problems Problem Status Onset Intractable low back pain Acute Lumbar disc herniation Acute Lower GI bleed Acute
[2017-09-04] MEDS ORDERED: oxyCODONE IR 5 MG TAB PO PRN (16:39)
[2017-09-04] MEDS: traMADol 50 MG TAB PO PRN (17:31)
[2017-09-04] MEDS ORDERED: BACITRACIN OINTMENT 1 PACKET TP ONE (17:42)
[2017-09-04] MEDS: BACITRACIN OINTMENT 1 PACKET TP SCH (17:45)
[2017-09-04] MEDS: POLYETHYLENE GLYCOL 3350 17 GM PKT PO SCH (21:09)
[2017-09-04] MEDS: ATORVASTATIN CALCIUM 40 MG TAB PO SCH (21:15)
[2017-09-04] MEDS: FAMOTIDINE 20 MG TAB PO SCH (21:16)
[2017-09-04] MEDS: CYANO/VITAMIN B12 1000 MCG TAB PO SCH (21:16)
[2017-09-04] MEDS: CHOLECALCIFEROL VIT D3 2,000 UNITS TAB/CAP PO SCH (21:17)
[2017-09-04] MEDS: LATANOPROST 0.005% 2.5 ML OPHT DROPS LEFTEYE SCH (21:18)
[2017-09-05] MEDS: ACETAMINOPHEN 500 MG TAB PO SCH ×4 (00:40→23:02)
[2017-09-05] MEDS: SENNOSIDES/DOCUSATE SODIUM TAB PO SCH ×3 (02:56→21:30)
[2017-09-05 05:38] LABS: PLATELET COUNT 198 10^3/uL (150-400)
--- NOTE | 2017-09-05 07:59 | SOAPPROG ---
SOAP Progress Note Assessment/Plan: Assessment: 62 yo male doing well after L3-S1 TLIF. Intraop durotomy. Patient now upright and doing well without DAMON Pain well controlled currently Plan: CPM w/ PT/OT xrays lumbar spine Continue FLORY until prior to DC which may be today if PT/OT clear patient Discussed with Dr. Cabrera 09/05/17 07:56 09/05/17 09:34 Subjective: awake, alert, pain controlled. no new issues Objective: Vital Signs Temp Pulse Resp BP Pulse Ox 36.8 C 70 18 140/76 H 92 09/05/17 07:39 09/05/17 07:39 09/05/17 07:39 09/05/17 07:39 09/05/17 07:39 Laboratory Results 09/05/17 04:44 09/05/17 04:44 09/04/17 09/05/17 09/06/17 05:59 05:59 05:59 Intake Total 2525 Output Total 6193 2185 Balance -390 -2665 Dressing: CDI FLORY: 5ml in bulb neuro: Paulson, sens +LT follows commands Alert, oriented x 4 ICD10 Worksheet Patient Problems: Problems Problem Status Onset Intractable low back pain Acute Lumbar disc herniation Acute Lower GI bleed Acute
[2017-09-05] MEDS: METOPROLOL TARTRATE 25 MG TAB PO SCH ×2 (08:50→21:30)
[2017-09-05] MEDS: MAGNESIUM OXIDE 400 MG TAB PO SCH (08:51)
[2017-09-05] MEDS: METHOCARBAMOL 750 MG TAB PO PRN ×3 (08:51→21:30)
[2017-09-05] MEDS: POLYETHYLENE GLYCOL 3350 17 GM PKT PO SCH (08:51)
[2017-09-05] MEDS: DULoxetine 20 MG CAP PO SCH (08:51)
[2017-09-05] MEDS: PANTOPRAZOLE SODIUM 40 MG TAB PO SCH (08:52)
[2017-09-05] MEDS: ENOXAPARIN 40 MG/0.4 ML SYR SC SCH (08:52)
[2017-09-05] MEDS: DILTIAZEM CD 120 MG CAP PO SCH (08:52)
[2017-09-05] MEDS: LISINOPRIL 10 MG TAB PO SCH (08:52)
[2017-09-05] MEDS: BACITRACIN OINTMENT 1 PACKET TP SCH ×2 (08:53→21:30)
[2017-09-05] MEDS: traMADol 50 MG TAB PO PRN ×3 (08:54→21:31)
[2017-09-05] MEDS: morphINE SR 15 MG TAB PO SCH ×2 (09:01→22:25)
--- NOTE | 2017-09-05 09:31 | HOSPPROG ---
Hospitalist Progress Note Assessment/Plan: Edin is a 62 y/o male who had a laminectomy in 2009. His back pain went away but cont to have numbness.He saw a chiropractor who helped with the numbness but then the pain returned. He had an MRI performed which showed L3- L4 disk herniation w compression of the L4 nerve root and severe foraminal stenosis at multiple levels. # L3-4 disk herniation with L4 nerve root compression - failed CATALINA -s/p L3-S1 TLIF w fusion with intraoperative CSF leak -has no headache -pain is overall well controlled # CAD s/p PCI in 2008 - holding asa/Plavix - MPI 1 year ago negative #Mild hyperkalemia -recheck in a.m. -if cont to increase, hold ACEI #lightheadedness -check orthostatics #cheek abrasions -add bacitracin # paroxysmal a-fib s/p ablation in 2004 - on metop and dilt - has LINQ # ELIZABETH - nocturnal O2 # asthma, stable # peripheral neuropathy - Cymbalta # leg edema - no DVT # dvt ppx - hold lovenox, restart per nsg #Plan: will ask Neurosurgery when ok to resume Plavix and asa, likely dc in the morning, needs to have FLORY drain removed, check a K level in the morning. Recommending home care. He has done well without the long acting pain medications so would dc on only prn pain meds. Subjective: Winston feels fine except gets lightheaded. Objective: Vital Signs Temp Pulse Resp BP Pulse Ox 36.8 C 92 18 140/76 H 92 09/05/17 07:39 09/05/17 08:52 09/05/17 07:39 09/05/17 08:52 09/05/17 07:39 Laboratory Results 09/05/17 04:44 09/05/17 04:44 09/04/17 09/05/17 09/06/17 05:59 05:59 05:59 Intake Total 2332 Output Total 7210 3431 Balance -390 -2966 - Physical Exam Constitutional: no apparent distress, appears nourished Eyes: PERRL Ears, Nose, Mouth, Throat: hearing normal Cardiovascular: regular rate and rhythym Respiratory: no respiratory distress Gastrointestinal: normoactive bowel sounds Skin: warm, other (cheek abrasions bilaterally) Musculoskeletal: generalized weakness Neurologic: AAOx3 Psychiatric: interacting appropriately ICD10 Worksheet Patient Problems: Problems Problem Status Onset Intractable low back pain Acute Lumbar disc herniation Acute Lower GI bleed Acute
--- NOTE | 2017-09-05 15:37 | ASMTCMCOM ---
CM Note CM Note Notes: Pt agreeable to [facility] per PT rec, chooses [facility] Kesty at [facility] alerted. CM to follow. Date Signed: 09/05/2017 03:37 PM Electronically Signed By:REY Coyne
[2017-09-05] MEDS: FAMOTIDINE 20 MG TAB PO SCH (21:30)
[2017-09-05] MEDS: ATORVASTATIN CALCIUM 40 MG TAB PO SCH (21:30)
[2017-09-05] MEDS: CHOLECALCIFEROL VIT D3 2,000 UNITS TAB/CAP PO SCH (21:30)
[2017-09-05] MEDS: CYANO/VITAMIN B12 1000 MCG TAB PO SCH (21:30)
[2017-09-05] MEDS: LATANOPROST 0.005% 2.5 ML OPHT DROPS LEFTEYE SCH (21:33)
[2017-09-06] MEDS: LISINOPRIL 10 MG TAB PO SCH (09:16)
[2017-09-06] MEDS: morphINE SR 15 MG TAB PO SCH (09:16)
[2017-09-06] MEDS: POLYETHYLENE GLYCOL 3350 17 GM PKT PO SCH (09:16)
[2017-09-06] MEDS: BACITRACIN OINTMENT 1 PACKET TP SCH (09:16)
[2017-09-06] MEDS: METHOCARBAMOL 750 MG TAB PO PRN (09:17)
[2017-09-06] MEDS: PANTOPRAZOLE SODIUM 40 MG TAB PO SCH (09:17)
[2017-09-06] MEDS: DULoxetine 20 MG CAP PO SCH (09:18)
[2017-09-06] MEDS: SENNOSIDES/DOCUSATE SODIUM TAB PO SCH (09:18)
[2017-09-06] MEDS: DILTIAZEM CD 120 MG CAP PO SCH (09:19)
[2017-09-06] MEDS: METOPROLOL TARTRATE 25 MG TAB PO SCH (09:20)
[2017-09-06] MEDS: MAGNESIUM OXIDE 400 MG TAB PO SCH (09:20)
[2017-09-06] MEDS: ACETAMINOPHEN 500 MG TAB PO SCH (09:21)
[2017-09-06] MEDS: ENOXAPARIN 40 MG/0.4 ML SYR SC SCH (09:21)
[2017-09-06] MEDS: traMADol 50 MG TAB PO PRN (09:24)
[2017-09-06 09:30] VITALS: BP 156/78
--- NOTE | 2017-09-06 10:26 | NEUSURGPN ---
Assessment/Plan: Assessment: Plan: S: Doing well, right leg pain with some weakness but pain much improved from preop. Walking well multiple times per day through the halls. Voiding well, eating well. Denies n/v/f/c. O: NAD, VSS, Alert, awake and talking CN II-XII intact Moving all extremities to command Strength 5/5 in all extremities FLORY Drain in place to suction Incision c/d/i A/P: 62yo male s/p L3-S1 TLIF for right leg pain with intraoperative CSF leak Doing well and has improved leg pain. Fitted for brace LSO PT/OT Post op xrays show good hardware placement Optimize pain control - Doing well on tramadol, robaxin, tylenol and oxycodone prn DC home today with [facility] Discussed with Dr. Cabrera 09/03/17 13:58 - Physician Discussed Patient with Dr.: Cabrera Neurosurgery Physical Exam - Vitals, I&O, Labs I and O 09/05/17 09/06/17 09/07/17 05:59 05:59 05:59 Intake Total 650 350 Output Total 2665 1625 450 Balance -2665 -975 -100 Intake: Oral (ml) 650 350 Output: Urine (ml) 2450 1550 450 Catheter 2450 Toilet 1250 Urinal 300 450 FLORY Drain Output (ml) 215 75 #1 Left Back Michael 215 75 Dor[place] Other: Intake Quantity Yes Sufficient Number of Voids Toilet 3 Urinal 1 Number of Stools Toilet 1 Vital Signs Temp Pulse Resp BP Pulse Ox 36.8 C 93 16 156/78 H 93 09/06/17 08:00 09/06/17 09:20 09/06/17 08:00 09/06/17 09:20 09/06/17 08:00 Laboratory Results 09/05/17 04:44 09/05/17 15:10 ICD10 Worksheet Patient Problems: Problems Problem Status Onset Intractable low back pain Acute Lumbar disc herniation Acute Lower GI bleed Acute
--- NOTE | 2017-09-06 10:29 | PDIAF ---
- Diagnosis Diagnosis: lumbar fusion Code Status: Full Code - Medication Management Discharge Medications: Medications to Continue on Transfer Albuterol [Proventil Inhaler HFA (*)] 1 - 2 puffs IH Q4HRS PRN 08/26/17 [Last Taken Unknown] Albuterol [Proventil Neb] 3 ml IH QID PRN 08/26/17 [Last Taken Unknown] Aspirin EC [Aspirin EC 81 mg (*)] 81 mg PO DAILY 08/26/17 [Last Taken 08/25/17] Atorvastatin Calcium [Lipitor 40 mg (*)] 80 mg PO HS 08/26/17 [Last Taken ] Cholecalciferol Vit D3 [Vitamin D3 2000 units tab (OTC)] 2,000 units PO HS 08/26 [Last Taken 08/25/17] Clopidogrel Bisulfate [Plavix (*)] 75 mg PO DAILY 08/26/17 [Last Taken 08/25/17] Cyanocobalamin [Vitamin B12 (*)] 1,000 mcg PO HS 08/26/17 [Last Taken 08/25/17] DULoxetine [Cymbalta] 40 mg PO DAILY 08/26/17 [Last Taken 08/25/17] Diltiazem HCl [Cartia Xt] 120 mg PO DAILY 08/26/17 [Last Taken 08/25/17] Eszopiclone [Lunesta] 3 mg PO HS PRN 08/26/17 [Last Taken Unknown] Indomethacin [Indocin 25 mg (*)] 25 mg PO Q6HRS PRN 08/26/17 [Last Taken Unknown ] LORazepam [Ativan (*)] 1 mg PO HS PRN 08/26/17 [Last Taken 08/25/17] Latanoprost 0.005% [Xalatan 0.005% (*)] 1 drops LEFTEYE HS 08/26/17 [Last Taken 08/24/17] Lisinopril [Zestril 10 mg (*)] 10 mg PO DAILY 08/26/17 [Last Taken 08/25/17] Magnesium Oxide [Magnesium] 500 mg PO HS 08/26/17 [Last Taken 08/25/17] Metoprolol Tartrate [Lopressor 25 mg (*)] 25 mg PO BID 08/26/17 [Last Taken 09/07] [place]-3 Fatty Acids [Fish Oil 1000 mg (*)] 1,000 mg PO HS 08/26/17 [Last Taken 08/25/17] [place]-3 Fatty Acids [Fish Oil 1000 mg (*)] 2,000 mg PO BID@08/26/17 [Last Taken 08/25/17] Pantoprazole Sodium [Protonix 40mg (*)] 40 mg PO DAILY 08/26/17 [Last Taken 09/07] Ranitidine HCl [Zantac] 300 mg PO HS 08/26/17 [Last Taken 08/12/17] Ubidecarenone [Co Q-10 200 mg] 200 mg PO HS 08/26/17 [Last Taken 08/25/17] Acetaminophen [Tylenol ES 500 mg (*)] 1,000 mg PO Q8HRS tab 09/06/17 [Last Taken Unknown] Bacitracin Ointment 1 freddy TP BID pkt 09/06/17 [Last Taken Unknown] Methocarbamol [Robaxin 750 mg (*)] 750 mg PO QID PRN #15 tab 09/06/17 [Last Taken Unknown] Polyethylene Glycol 3350 [Miralax 17 gm (*)] 17 gm PO DAILY pkt 09/06/17 [Last Taken Unknown] Sennosides/Docusate Sodium [Senokot-S] 1 - 2 tab PO BID tab 09/06/17 [Last Taken Unknown] traMADol [Ultram 50 mg (*)] 50 mg PO Q6HRS PRN #20 tab 09/06/17 [Last Taken Unknown] Discharge Medications: Refer to the Discharge Home Medication list for PRN reason. PICC Care - Routine: N/A - Orders Services needed: Home Care, Physical Therapy Home Care Face to Face: I certify that this patient was under my care and that I had the required [id number] encounter meeting the encounter requirements on the discharge day. My findings support the fact that the patient is homebound as defined in Home Care Face to Face Continued: CMS Chapter 7 Medicare Benefits Manual 30.1.1 , The condition of the patient is such that there exists a normal inability to leave home and consequently, leaving home would require a considerable and taxing effort. Diet Recommendation: no restrictions on diet Additional Instructions: Patient to follow-up with PCP regarding Pneumococcal Pneumonia Vaccine No bending at the waist, twisting, or lifting more than 5-10 pounds No NSAIDs for 3 months Follow up with Dr. Cabrera in 2 weeks for your postop appt. [phone] Start plavix 7 days after surgery Hold aspirin until Dr. Cabrera says to restart - Follow Up Care Current Providers and Referrals: Patient,NotPresent [Unknown] - As per Instructions
--- NOTE | 2017-09-06 13:53 | GDS ---
[f rep st] DISCHARGE SUMMARY DISCHARGE DIAGNOSES: 1. Back pain. 2. L3-4 disk herniation. 3. Coronary artery disease. 4. Mild hyperkalemia. 5. Paroxysmal atrial fibrillation. 6. Facial abrasion. 7. Obstructive sleep apnea. 8. Asthma. 9. Peripheral neuropathy. 10. Cerebrospinal fluid leak. CONSULTATIONS: Neurosurgery. STUDIES AND PROCEDURES DONE: L3 to S1 T-LIFT. PHYSICAL EXAM: GENERAL: The patient is alert. VITAL SIGNS: Afebrile at 36.8, pulse is 98, respira tory rate 16, blood pressure is 127/97. He is saturating 93% on room air. I have seen and evaluated the patient on the day of discharge. HOSPITAL COURSE: The patient is a 62-year-old male who presented to the emergency room with complain ts of back pain. He was evaluated and diagnosed with: 1. L3-4 disk herniation. During this hospitalization, he received an L3 through S1 T-LIFT per Neuro surgery. He did have an intraoperative CSF leak, which has resolved. The patient's pain is controll ed, with no further signs of complication. 2. History of coronary artery disease. His aspirin and Plavix have been on hold prior to his surgic al intervention. He is to start his Plavix 7 days postoperatively. 3. Mild hyperkalemia. This has resolved. 4. Lightheadedness. This has resolved. 5. Facial abrasion. We will continue to place bacitracin. Appears stable with no signs of infectio n. 6. Paroxysmal atrial fibrillation. He has had an ablation in the past. Continue his previously pre scribed medications. 7. Disposition. The patient will be discharged home with home physical therapy. There are no pendi ng studies. DISCHARGE MEDICATIONS: Please refer to EMR form. I have provided the patient with prescriptions for Robaxin and Ultram. FOLLOWUP: Was to be with his primary care physician as well as Neurosurgery, Dr. Cabrera. I spent greater than 35 minutes in the care, coordination, and management of this patient's dispositi on. /[id number]/MODL
--- NOTE | 2017-09-06 14:33 | ASMTCMCOM ---
CM Note CM Note Notes: Pt medically stable for d/c with [facility]. Orders to be obtained via [facility]. Pt family to transport home. Date Signed: 09/06/2017 02:33 PM Electronically Signed By:REY Coyne
--- NOTE | 2017-09-06 14:34 | ASDISCHSUM ---
Discharge Information Plan Status:Home with Home Health Medically Cleared to Leave: Discharge Date:09/06/2017 11:39 AM CM D/C Disposition:Home Health Service ADT D/C Disposition:Home Health Service Projected Discharge Date:09/06/2017 11:00 AM Transportation at D/C:Family Discharge Delay Reason: Follow-Up Date:09/06/2017 11:00 AM Discharge Slot: Final Diagnosis: Placement Information Referral Type:*Home Health Care Services Referral ID:[id number] Provider Name:[facility] Address 1[address] Address 2: City:[place] Selection Factors: State:[place] Patient Contact Information Contact Name:OSMAN Relationship:Daughter Address: Work Phone: City:[place] Alternate Phone: State/Zip Code:[place] [address] Email: Financial Information Financial Class:HMO and PPO Plans Primary Plan Desc:RAINER PPO Primary Plan Number:[id number] Secondary Plan Desc: Secondary Plan Number: Assessment Information [facility] CM Progress Note CM Note CM Note Notes: Pt in for intractable back pain and disk herniation.i Pt scheduled to have steroid injection tomorrow. PT/OT evals pending. Pt resides in [facility]. CM to follow for d/c needs. Date Signed: 08/27/2017 03:57 PM Electronically Signed By:REY Coyne [facility] CM Progress Note CM Note CM Note Notes: Surgical options discussed with pt since the steroid injection has not provided relief. Pt to be off Plavix before surgery so now surgery is scheduled Sunday09/03/17. Pt likely will stay in hospital until surgery. OT will hold eval until after surgery. PT rec home/outpatient. CM to follow pt progress after surgery. Date Signed: 08/30/2017 01:59 PM Electronically Signed By:REY Coyne [facility] CM Progress Note CM Note CM Note Notes: Pt scheduled for L3-S1 TLIF with laminectomy Sunday09/03/17. CM to follow pt progress after surgery for discharge needs. Date Signed: 08/31/2017 03:57 PM Electronically Signed By:REY Coyne [facility] CM Progress Note CM Note CM Note Notes: Patient to OR today for T3-S1 fusion. PT/OT will evaluate post-operatively. Patient is normally independent, lives alone. Has supportive children in the area. Case Management will follow for discharge needs. Date Signed: 09/03/2017 09:28 AM Electronically Signed By:Ami Medina RN BC CM Progress Note CM Note CM Note Notes: Pt agreeable to [facility] per PT rec, chooses [facility] Carroll at [facility] alerted. CM to follow. Date Signed: 09/05/2017 03:37 PM Electronically Signed By:REY Coyne [facility] CM Progress Note CM Note CM Note Notes: Pt medically stable for d/c with [facility] PT. Orders to be obtained via [email or web address] Pt family to transport home. Date Signed: 09/06/2017 02:33 PM Electronically Signed By:REY Coyne Intervention Information
== END 2017-09-06 11:39 | disposition home health service (06) | DRG 460 ==
LOC: EDUNIT# → EDSEX → OBSVTOIN 13:05 → F3N 13:36
PROVIDERS: ADMIT Internal Medicine; ATTEND Internal Medicine
PROC: 3E0S3NZ Introduction of Analgesics, Hypnotics, Sedatives into Epidural Space, Percutaneous Approach (ICD-10-PCS; 2017-08-28)
PROC: 3E0S33Z Introduction of Anti-inflammatory into Epidural Space, Percutaneous Approach (ICD-10-PCS; 2017-08-28)
PROC: 0SG10AJ Fusion of 2 or more Lumbar Vertebral Joints with Interbody Fusion Device, Posterior Approach, Anterior Column, Open Approach (ICD-10-PCS; principal; 2017-09-03 07:15)
PROC: 01NB0ZZ Release Lumbar Nerve, Open Approach (ICD-10-PCS; principal; 2017-09-03 07:15)
PROC: 0SG30AJ Fusion of Lumbosacral Joint with Interbody Fusion Device, Posterior Approach, Anterior Column, Open Approach (ICD-10-PCS; principal; 2017-09-03 07:15)
PROC: 3E0U0GB Introduction of Recombinant Bone Morphogenetic Protein into Joints, Open Approach (ICD-10-PCS; principal; 2017-09-03 07:15)
PROC: 0ST20ZZ Resection of Lumbar Vertebral Disc, Open Approach (ICD-10-PCS; principal; 2017-09-03 07:15)
DX: M51.16 Intervertebral disc disorders with radiculopathy, lumbar region (principal); E87.5 Hyperkalemia; G97.0 Cerebrospinal fluid leak from spinal puncture; I48.0 Paroxysmal atrial fibrillation; I25.10 Atherosclerotic heart disease of native coronary artery without angina pectoris; G47.33 Obstructive sleep apnea (adult) (pediatric); G62.9 Polyneuropathy, unspecified; N40.0 Benign prostatic hyperplasia without lower urinary tract symptoms; H40.9 Unspecified glaucoma; J45.909 Unspecified asthma, uncomplicated; Z98.1 Arthrodesis status; Z79.01 Long term (current) use of anticoagulants; Z95.5 Presence of coronary angioplasty implant and graft
CPT/HCPCS: 96374; 97116-GP; 97161-GP; 97164-GP; 97166-GO; 97535-GO; A9585; C1713; C1762; G0378; J0171; J0690; J1100; J1170; J1650; J1885; J2250; J2270; J2274; J2405; J2704; J3010; J3301; J3360